=== PATIENT | male | born 1945 | race Caucasian/White ===

== ENCOUNTER 2018-06-14 09:35 | Observation (INO) | payer OTHER ==
[2018-06-14] VITALS (17 sets, daily range): BP systolic 102–155; BP diastolic 53–73
[~2018-06-14] VITALS: Ht 180.3 cm; Wt 86.2 kg
[2018-06-14] MEDS ORDERED: LOW DOSE ASPIRI81 M1 PO (10:45)
[2018-06-14 10:46] LABS: HEMATOCRIT 43.8 % (42.0-52.0); HEMOGLOBIN 15.1 gm/dL (14.0-18.0); MCH 31.1 pg (26.0-34.0); MCHC 34.4 g/dL (28.0-37.0); MCV 90.4 fL (80.0-100.0); MPV 7.4 fl. (7.2-11.1); RBC 4.85 mil/uL (4.50-6.00); RDW-CV 14.1 % (10.5-14.5); WBC 7.2 thou/uL (4.0-11.0)
[2018-06-14] MEDS ORDERED: LIPITOR80 MG PO (10:46)
[2018-06-14] MEDS ORDERED: DEXILANT60 MG PO (10:46)
[2018-06-14] MEDS ORDERED: PLAVIX 75 MG TA75 M1 PO (10:46)
[2018-06-14] MEDS ORDERED: ARICEPT 5 MG TAB5 MG PO (10:47)
[2018-06-14] MEDS ORDERED: ALLEGRA ALLERG180 MG PO (10:48)
[2018-06-14] MEDS ORDERED: ZETIA10 MG PO (10:48)
[2018-06-14] MEDS ORDERED: NIGHTTIME SLEEP25 M1 PO (10:48)
[2018-06-14] MEDS ORDERED: ZANTAC 150MG T150 MG PO (10:49)
[2018-06-14] MEDS ORDERED: PROZAC20 MG PO (10:49)
[2018-06-14] MEDS ORDERED: NEURONTIN 400400 M1 PO (10:49)
[2018-06-14] MEDS ORDERED: MIDODRINE HCL 55 M1 PO (10:50)
[2018-06-14 10:53] LABS: APTT 26.4 Seconds (25.0-31.3); PROTIME 10.4 Seconds (9.20-11.50)
[2018-06-14 10:57] LABS: ALBUMIN 3.7 g/dL (3.4-5.0); ALKALINE PHOSPHATASE 106 U/L (46-116); ANION GAP 9 mmol/L (7-16); BUN 15 mg/dL (7-18); CALCIUM 9.3 mg/dL (8.5-10.1); CHLORIDE 106 mmol/L (98-107); CHOLESTEROL 127 mg/dL (<200); CO2 25 mmol/L (21-32); CREATININE 1.2 mg/dL (0.6-1.3); GLUCOSE 97 mg/dL (70-99); HDL CHOLESTEROL 42 mg/dL (>40); LDL CHOLESTEROL 66 mg/dL (<100); POTASSIUM 4.1 mmol/L (3.5-5.1); SGOT 34 U/L (15-37); SGPT 31 U/L (30-65); SODIUM 140 mmol/L (136-145); TOTAL BILIRUBIN 0.6 mg/dL (<0.1-1.0); TOTAL PROTEIN 7.9 g/dL (6.4-8.2); TRIGLYCERIDE 96 mg/dL (<150); VLDL 19 mg/dL (<40)
[2018-06-14 10:58] LABS: SERUM ASSESSMENT Clear
--- NOTE | 2018-06-14 11:31 | EKG ---
[place] [address] ELECTROCARDIOGRAM REPORT Name: MERLINE LUJAN Room: [facility]#: [id number] Admission: 06/14/18 Attend Phys: Giancarlo Bryson MD Discharge: Date of : 43 Report #: [id number] THIS REPORT FOR: //name// [facility] Test Date: 2018-06-14 Test Time: 10:31:01 Pat Name: MERLINE LUJAN Department: Room: Gender: M Shuffle Board Operator: : 1945 Requested By: Giancarlo Bryson Order Number: [id number] Reading MD: Giancarlo Bryson Measurements Intervals [place] Rate: 69 P: -13 NE: 156 QRS: 41 QRSD: 98 T: 36 QT: 414 QTc: 444 Interpretive Statements Sinus rhythm Abnormal R-wave progression, early transition Borderline T abnormalities, anterior leads No previous ECG available for comparison Electronically Signed On 06-14-2018 11:31:09 CDT by Giancarlo Bryson [email or web address] <ELECTRONICALLY SIGNED> By: Giancarlo Bryson MD, [facility] 06/14/18 113 103 30 Giancarlo Bryson MD, FAC /EPI
--- NOTE | 2018-06-14 16:30 | NUR ---
REC'D REPORT FROM CUSTOMER ADVISOR RN, PATIENT TO UNIT VIA BLAIR AT 1605. A&OX4, ABLE TO COMMUNICATE NEEDS TO STAFF. ASSESSMENT COMPLETE, VS OBTAINED. O2 SATS 95% ON RA. UP WITH SBA D/T FALL WITHIN LAST 3 MONTHS, AND PROCEDURE MEDICATION RESIDUAL. PATIENT HAS STEADY GAIT. R RADIAL CATH PUNCTURE SITE COVERED WITH WRISTBAND, BRUISING AT SITE WITH NO BLEEDING. NO C/O PAIN, NAUSEA OR SOA. CALL LIGHT WITHIN REACH.
[2018-06-15] VITALS: BP 133/66
[2018-06-15 04:00] VITALS: BP 124/64
--- NOTE | 2018-06-15 05:05 | NUR ---
PT RESTING COMFORTABLE IN BED. NO C/O PAIN. PT REMAINS ON RA. SR/SB ON MONITOR. AM LABS TO BE REVIEWED. PT RIGHT WRIST POST CARDIAC CATH SITE REMAINS SOFT, CDI. CONTINUES WITH MAINTENANCE IVF.
[2018-06-15 05:33] LABS: HEMATOCRIT 39.1 % (42.0-52.0); HEMOGLOBIN 13.3 gm/dL (14.0-18.0); MCV 91.1 fL (80.0-100.0); MPV 7.7 fl. (7.2-11.1); RBC 4.29 mil/uL (4.50-6.00); RDW-CV 13.9 % (10.5-14.5); WBC 7.3 thou/uL (4.0-11.0)
[2018-06-15 05:56] LABS: POTASSIUM 4.3 mmol/L (3.5-5.1); TOTAL BILIRUBIN 0.4 mg/dL (<0.1-1.0); TOTAL PROTEIN 6.5 g/dL (6.4-8.2)
[2018-06-15 05:58] LABS: TROPONIN-I LEVEL 0.64 ng/mL (<0.06)
[2018-06-15 08:28] VITALS: BP 131/70
[2018-06-15 11:11] VITALS: BP 110/61
[2018-06-15] MEDS ORDERED: BRILINTA90 MG PO (12:14)
[2018-06-15] MEDS ORDERED: NITROGLYCERIN0.4 MG SUBLING (12:15)
--- NOTE | 2018-06-15 13:03 | NUR ---
PT VSS THIS SHIFT, SR/SB ON THE MONITOR, CATH SITE CDI AT THIS TIME. IV REMOVED INTACT WITH NO COMPLICATIONS. PT EDUCATED REGARDING MEDICATIONS AND DISCHARGE INSTRUCTIONS WELL FOLLOW UP APPOINTMENTS. PT PROVIDED WITH 2 PRESCRIPIONS AT TIME OF D/C. PT AND SPOUSE VERBALIZED UNDERSTANDING AT THIS TIME. PT AMBULATED WITH STAFF OUT OF HOSPITAL WITH STEADY GAIT AT 1240. .
[2018-06-15 13:26] VITALS: BP 110/61
--- NOTE | 2018-06-15 14:31 | EKG ---
[place] [address] ELECTROCARDIOGRAM REPORT Name: MERLINE LUJAN Room: [address] M.R.#: [id number] Admission: 06/14/18 Attend Phys: Giancarlo Bryson MD Discharge: 06/15/18 Date of : 43 Report #: [id number] THIS REPORT FOR: //name// [facility] Test Date: 2018-06-14 Test Time: 13:28:34 Pat Name: MERLINE LUJAN Department: Room: [facility] Gender: M Head Strength And Conditioning Coach: : 1945 Requested By: Gabo Arce Order Number: [id number] Christiano MD: Gabo Arce Measurements Intervals [place] Rate: 65 P: -8 [place]: 168 QRS: 30 QRSD: 88 T: 41 QT: 436 QTc: 454 Interpretive Statements Sinus rhythm Abnormal R-wave progression, early transition Compared to ECG 06/14/2018 10:31:01 T-wave abnormality no longer present Electronically Signed On 06-15-2018 14:31:44 CDT by Gabo Arce [email or web address] <ELECTRONICALLY SIGNED> By: Gabo Arce MD, [facility] 06/15/18 1431 1328 1328 Gabo Arce MD, [facility] /EPI
--- NOTE | 2018-06-15 15:19 | CARD ---
[address] [address] CARDIAC CATH REPORT Name: MERLINE LUJAN Room: [address] Rommel Russo#: [id number] Admission: 06/14/18 Attend Phys: Giancarlo Bryson MD Discharge: 06/15/18 Date of : 43 Report #: [id number] THIS REPORT FOR: //name// APPROVED REPORT Study performed: 06/14/2018 10:43:13 Patient Details Patient Status: Out-Patient Room #: The patient is a 72 year-old male Event Personnel Giancarlo Bryson Business Transformation Consultant, Gabo Arce Solution Mixer, Kristian Andrews FREIGHT DELIVERY DRIVER Monitor, Pedro Luis Chawla FREIGHT DELIVERY DRIVER Scrub, Lucila Akers RN [place] Nurse, Liv Nguyen [place] Nurse Procedures Performed Left Heart Cath FFR JANETTE Place w/wo Plasty Single RCA; Indication Positive stress test Risk Factors Hypercholesterolemia, Hypertension Admission/Lab Medications/Medications given during procedure Aspirin, Platelet Aff. Inhib., Angiomax bolus and infusion Procedure Narrative The patient was brought electively to the Cardiac Catheterization Laboratory and was prepped and draped in a sterile manner. The right wrist was infiltrated with 2% Lidocaine subcutaneous anesthesia. A Slender Glidesheath sheath was inserted into the . Coronary angiography was performed using coronary diagnostic catheters. The right coronary system was accessed and visualized with a 3DRC 6fr catheter. The left coronary system was accessed and visualized with a [place] 4.0 6fr catheter. The left ventricle was accessed and visualized with a PC: Angled Pig 5fr catheter. Left ventricular/Aortic Valve gradient assessed via catheter pullback. Left ventriculogram was performed in LICEA projection. The patient tolerated the procedure well and there were no complications associated with the procedure. [place] [address] CARDIAC CATH REPORT Name: MERLINE LUJAN Room: [address] M.R.#: [id number] Admission: 06/14/18 Attend Phys: Giancarlo Bryson MD Discharge: 06/15/18 Date of : 43 Report #: [id number] Intraoperative Conscious Sedation Sedation start time: 11:31 Case end Time: 13:00 Fentanyl 75 mcg Fluoro Time: 34 minutes Dose: DAP 094262 cGycm2 76.3 mGy Contrast Type and Amount: Visipaque 300 ml Diagnostic Cath Left Main 0% narrowing LAD 40% proximal and mid LAD narrowings Circumflex 60% ostial calcified narrowing with a tubular 40% proximal narrowing Right Coronary Dominant vessel with tandem 80 and 70% mid vessel stenosis Left Ventriculography The left ventricle is normal in size with normal contractility. The left ventricular ejection fraction is estimated to be 65%. Left ventricular wall motion abnormalities are not present. There is mild mitral insufficiency. IVUS Anticoagulation was achieved with Angiomax. Fractional Flow [place] was performed on the proximal left anterior descending artery segment vessel. A XBLAD 3.5 Guide Catheter was used to engage the Left Main ostium. A FFR Interventional Guidewire was used. IVUS Findings FFR of Lesion Proximal Circumflex revealed : 0.89 Hemodynamics The aortic pressure is 97/55 mmHg with a mean of 71 mmHg. The left ventricular pressure is 110/-1 mmHg with a mean of mmHg. The left ventricular end diastolic pressure is 17 mmHg. There was no gradient across the aortic valve upon pullback. PCI Technique Lesion Anticoagulation was achieved with Angiomax. Patient was preloaded with Angiomax IV 13 mg per kg. Percutaneous coronary intervention was performed on the mid right coronary artery. The lesion stenosis prior to intervention was 80% with NESSA 3 flow. A 6FR XBRCA Guide Catheter was used to engage the ostium. A IG: BMW 190cm Interventional Guidewire was [place] [address] CARDIAC CATH REPORT Name: MERLINE LUJAN Room: [address]#: [id number] Admission: 06/14/18 Attend Phys: Giancarlo Bryson MD Discharge: 06/15/18 Date of : 43 Report #: [id number] BALLOON DILATION A Balloon catheter Trek RX 2.5 X 12 was inserted and inflated up to 16.00atm for 15seconds. Additional Inflation: 14.00atm for 7seconds. Additional Inflation: 16.00atm for 15seconds. STENT DEPLOYMENT A drug-eluting stent Xience Ethel 2.60A56bm was inserted and inflated up to 14.00atm for 12seconds. Additional Inflation: 18.00atm for 13seconds. Additional Inflation: 20.00atm for 12seconds. POST STENT DEPLOYMENT BALLOON DILATION A Balloon catheter NC Trek RX 3.0 X 15 was inserted and inflated up to 16.00atm for 6seconds. Additional Inflation: 16.00atm for 5seconds. Additional Inflation: 16.00atm for 7seconds. Final angiography reveals 0 % stenosis with NESSA 3 flow. PCI Technique Lesion The lesion stenosis prior to intervention was proximal left anterior descending artery segment% with NESSA XBLAD 3.5 flow. A Left Main Guide Catheter was used to engage the FFR ostium. BALLOON DILATION A Balloon catheter FFR of Lesion Proximal Circumflex revealed : 0.89 was inserted and inflated up to salvador for seconds. Conclusion #1 significant coronary artery disease characterized by the following: A 40% proximal and mid LAD narrowing B 60% ostial circumflex narrowing with tubular 40% proximal narrowing C dominant right coronary artery with tandem 80 and 70% mid vessel stenosis #2 normal left ventricular systolic function, estimate ejection fraction being 65% with mild mitral regurgitation noted #3 mild elevation of left ventricular end-diastolic pressure at rest #4 successful percutaneous coronary intervention with deployment of drug-eluting stent at site of tandem 80 and 70% [place] [address] CARDIAC CATH REPORT Name: MERLINE LUJAN Room: [address] Rommel Russo#: [id number] Admission: 06/14/18 Attend Phys: Giancarlo Bryson MD Discharge: 06/15/18 Date of : 43 Report #: [id number] stenosis with 0% residual narrowing and NESSA-3 flow the distal vessel #5 fractional flow reserve performed on the proximal circumflex with a minimum value 0.89 after adenosine provocation, suggesting lack of hemodynamic significance Recommendations Cardiac Risk Reduction Program Aggressive Medical Therapy Medications Administered Aspirin (any) Ticagrelor Diagnostic Cath Approved by: Giancarlo Bryson MD Date/Time: 06/15/2018 15:17:05 <ELECTRONICALLY SIGNED> By: Gabo Arce MD, FACC 06/15/18 1518 1518 1518Gabo Arce MD, FACC /INF
--- NOTE | 2018-06-17 11:32 | D ---
[address] [address] DISCHARGE SUMMARY Name: MERLINE LUJAN Room: [address] Rommel MItzelRItzel#: [id number] Admission: 06/14/18 Attend Phys: Giancralo Bryson MD Discharge: 06/15/18 Date of : 43 Report #: [id number] THIS REPORT FOR: //name// CC: Cece Bryson DATE OF SERVICE: 06/15/2018 FINAL DISCHARGE DIAGNOSES: 1. Abnormal stress echocardiogram. 2. Coronary artery disease. 3. Status post percutaneous coronary intervention of the right coronary artery. 4. Dyspnea on exertion. 5. Hyperlipidemia. 6. Gastroesophageal reflux disease. 7. History of transient ischemic attack. 8. History of tobacco abuse. PROCEDURES: 06/14/2018 -- left heart catheterization, left ventriculography, selective coronary arteriography and percutaneous coronary intervention of the right coronary artery. The patient is a very pleasant 72-year-old male with a history of dyspnea on exertion and recently abnormal stress echocardiogram. He also has underlying hyperlipidemia. In this context, Dr. Bryson performed cardiac catheterization on 06/14/2018, which revealed tubular and sequential 75% mid right coronary stenoses with a 60-70% ostial circumflex narrowing. There was modest LAD disease. Given these findings, I performed percutaneous coronary intervention, deploying 1 drug-eluting stent in mid right coronary artery, post-dilating it to 3 mm with 0% residual narrowing. Fractional flow reserve on the ostial proximal circumflex lesion with a minimal value of 0.89 after adenosine provocation, suggesting lack of hemodynamic significance. Thus, no intervention was performed on the circumflex. The patient did well, and the procedure was performed radially with good hemostasis at the right radial site post-procedurally. The patient ambulated in the hallways without difficulty. DISCHARGE MEDICATIONS: He was discharged to home on the following medications: Aspirin 81 mg daily, atorvastatin 80 mg at bedtime, Dexilant 60 mg daily, Aricept 10 mg daily, doxylamine 25 mg at bedtime, Zetia 10 mg daily, fexofenadine or Tonya 1 tablet daily, fluoxetine or Prozac 20 mg daily, gabapentin 800 mg t.i.d., midodrine 2.5 mg b.i.d., ticagrelor 90 mg b.i.d. with 180 mg loading dose given periprocedurally, ranitidine 150 mg p.r.n., [place] [address] DISCHARGE SUMMARY Name: MERLINE LUJAN Room: [address] MItzelRItzel#: [id number] Admission: 06/14/18 Attend Phys: Giancarlo Bryson MD Discharge: 06/15/18 Date of : 43 Report #: [id number] sublingual nitroglycerin. The patient is scheduled to return to see our nurse practitioner in 10 days to 2 weeks. <ELECTRONICALLY SIGNED> By: Gabo Arce MD, FACC 06/17/18 1132 0933 1712Joyaima Arce MD, FACC /nt
== END 2018-06-15 14:29 | disposition home or self-care (01) ==
LOC: M.CL 09:35 → M.2W 13:19 → M.TBA-CV 13:19 → M.2W 16:18
PROVIDERS: Internal Medicine; ADMIT Internal Medicine Cardiovascular Disease
DX: I25.10 Atherosclerotic heart disease of native coronary artery without angina pectoris (principal); E78.5 Hyperlipidemia, unspecified; K21.9 Gastro-esophageal reflux disease without esophagitis; R06.09 Other forms of dyspnea; R94.39 Abnormal result of other cardiovascular function study; E78.00 Pure hypercholesterolemia, unspecified; I10 Essential (primary) hypertension; Z86.73 Personal history of transient ischemic attack (TIA), and cerebral infarction without residual deficits; Z87.891 Personal history of nicotine dependence; Z98.61 Coronary angioplasty status

== ENCOUNTER → 2019-04-06 | Outpatient (CLI) | payer OTHER ==
[~2019-04-06] MED LIST: ALLEGRA ALLERG180 MG PO; ARICEPT 5 MG TAB5 MG PO; BRILINTA90 MG PO; DEXILANT60 MG PO; LIPITOR80 MG PO; LOW DOSE ASPIRI81 M1 PO; MIDODRINE HCL 55 M1 PO; NEURONTIN 400400 M1 PO; NIGHTTIME SLEEP25 M1 PO; NITROGLYCERIN0.4 MG SUBLING; PLAVIX 75 MG TA75 M1 PO; PROZAC20 MG PO; ZANTAC 150MG T150 MG PO; ZETIA10 MG PO
--- NOTE | 2019-04-06 16:50 | CARDNUC ---
[place] [address] CARDIAC NUCLEAR IMAGING REPORT Name: MERLINE LUJAN Room: [facility]#: [id number] Admission: 04/06/19 Attend Phys: Ollie Navarro Discharge: Date of : 43 Date of Service: 04/06/19 1649 Report #: [id number] THIS REPORT FOR: cc: Cece Patricia Linda J. DO Biggs, F. Douglas MD [facility] ~ APPROVED REPORT Study performed: 04/06/2019 13:00:00 Indication: Chest pain, Dyspnea Patient Location: Out-Patient Stress Tech: [facility] Stress Nurse: Isis Agarwal RN Ht: 5 ft 11 in Wt: 185 lbs BSA: 2.04 m2 BMI: 25.79 Medical History Medical History: Angina, CAD s/p CABG, CAD s/p stent, Former Smoker, Hyperlipidemia, SOB. Medications: NTG, Zetia, Plavix, Atorvastatin, ASA 81 Mg. Allergies: No known drug allergies. Cardiac Risk Factors: Age, Age, Hyperlipidemia, SOB, Past Smoker, s/p TX/PCI. Previous Cardiac Procedures: Myocardial infarction, PCI. Pretest Chest Pain Characteristics: No chest pain. Exercise History: Indeterminate. Physical Disabilities: Knees/Back. Meds Held (24 hrs): NTG. Resting Data Rest SPECT myocardial perfusion imaging was performed in supine position 30 minutes following the intravenous injection of 10.5 mCi of Tc-99m Sestamibi. Time of rest injection: 13:15 The images were gated to evaluate regional wall motion and calculate left ventricular ejection fraction. Administration Route: IV Administration Site: Left AC Exercise Stress At peak stress, the patient was injected intravenously with 33.2mCi of Tc-99[place] [address] CARDIAC NUCLEAR IMAGING REPORT Name: MERLINE LUJAN [id number] Admission: 04/06/19 Attend Phys: Ollie Navarro Discharge: Date of : 43 Date of Service: 04/06/19 1649 Report #: [id number] Time of stress injection: 15:00 Administration Route: IV Administration Site: Left AC Heart Rate at time of stress injection: 124 bpm. Patient continued to exercise for 1 minute(s). Gated Stress SPECT was performed 30 minutes after stress injection. The images were gated to evaluate regional wall motion and calculate left ventricular ejection fraction. Prone imaging was performed. Stress Test Details Stress Test: Exercise stress testing was performed using a Adarsh protocol. HR Max Heart Rate (APMHR): 146 bpm Resting HR: 66 bpm Target HR (85% APMHR): 124 bpm Max HR Achieved: 130 bpm % of APMHR: 89 Recovery HR: 92 bpm HR response to stress: Normal HR response to stress BP Resting BP: 115/73 mmHg Max BP: 202/73 mmHg Recovery BP: 120/76 mmHg BP response to stress: Normal blood pressure response to stress. ECG Resting ECG: Sinus Rhythm, normal EKG Stress ECG: Sinus Tachycardia, otherwise normal ST Change: None Maximum ST Deviation: 0 mm Arrhythmia: None Recovery ECG: Sinus Rhythm, normal EKG Recovery ST Change: None Recovery ST Deviation: 0 mm Recovery Arrhythmia: None Clinical Reason for Termination: Completed protocol Stress Symptoms: Dyspnea, Dizziness Exercise duration: 7 min 22 sec Exercise capacity: 7.82 METs Overall Exercise Capacity for Age: [place] [address] CARDIAC NUCLEAR IMAGING REPORT Name: MERLINE LUJAN Room: [facility]#: [id number] Admission: 04/06/19 Attend Phys: Ollie Navarro Discharge: Date of : 43 Date of Service: 04/06/19 1649 Report #: [id number] Nurse Comments A 73 year old male presented for a Adarsh Protocol Nuclear Stress Test r/t recent CP and increased SOA on exertion. Treadmill well tolerated. Exercise Capacity - Normal. Recovery unremarkable. Patient was escorted by staff to Nuclear Medicine for imaging. Patient was stable and stated he felt good at that time. Stress ECG Conclusion ECG: Non-ischemic Clinical: Non-ischemic Normal submaximal stress test. Study Quality Study: Good Artifact: Mild Soft tissue attenuation artifact Lung Uptake: Normal Study Data At rest, the left ventricular ejection fraction was 81%.. Post stress, the left ventricular ejection was 81%.. SSS: 8 SRS: 11 SDS: -3 TID = 0.79. Perfusion The resting study demonstrated a small mild lateral defect. The post stress images demonstrated a small very mild lateral defect and a small very mild inferior defect. Prone images were normal there were no defects seen. Therefore no reversible defects seen and there is no evidence of myocardial .ischemia Images were reviewed using [employer]. Wall Motion Normal left ventricular wall motion. Nuclear Conclusion ECG Findings: negative for ischemia Clinical Findings: negative for ischemia Nuclear Findings: negative for ischemia Exercise Capacity: normal Left Ventricular Function: normal Risk Study: low The Lexiscan Cardiolite stress test demonstrates no evidence of myocardial ischemia. Overall this is a normal study. This [place] [address] CARDIAC NUCLEAR IMAGING REPORT Name: MERLINE LUJAN Room: [facility]#: [id number] Admission: 04/06/19 Attend Phys: Ollie Navarro Discharge: Date of : 43 Date of Service: 04/06/19 1649 Report #: [id number] <Conclusion> ECG: Non-ischemic Clinical: Non-ischemic Normal submaximal stress test. <ELECTRONICALLY SIGNED> By: Reta Alvarado MD, FAC 04/06/191648 48 48 Reta Alvarado MD, FAC /INF
== END ==
LOC: M.NUC 11-29 17:05
DX: I25.10 Atherosclerotic heart disease of native coronary artery without angina pectoris (principal); Z95.5 Presence of coronary angioplasty implant and graft

== ENCOUNTER 2019-11-29 07:36 | Observation (INO) | payer OTHER ==
[2019-11-29] VITALS (11 sets, daily range): BP systolic 101–129; BP diastolic 45–78
[~2019-11-29] VITALS: Ht 180.3 cm; Wt 84.4 kg
--- NOTE | ~2019-11-29 | H ---
[address] [address] HISTORY AND PHYSICAL Name: MERLINE LUJAN Room: [address] Rom[place] Russo#: [id number] Admission: 11/29/19 Attend Phys: Gabo Arce MD, Discharge: 11/30/19 Date of : 43 Report #: [id number] THIS REPORT FOR: //name// cc: Cece Patricia Linda J. DO ~ Please refer to the History and Physical performed in the physician's office. By: [facility]8Medical Records Staff [facility] /BIBI
[2019-11-29 08:52] LABS: HEMOGLOBIN 15.9 gm/dL (14.0-18.0); MCH 31.5 pg (26.0-34.0); MCHC 34.5 g/dL (28.0-37.0); MCV 91.3 fL (80.0-100.0); MPV 7.2 fl. (7.2-11.1); RBC 5.04 mil/uL (4.50-6.00); RDW-CV 14.5 % (10.5-14.5); WBC 11.9 thou/uL (4.0-11.0)
[2019-11-29] MEDS ORDERED: ARICEPT10 M1 PO (09:02)
[2019-11-29] MEDS ORDERED: NEURONTIN800 MG PO (09:05)
[2019-11-29 09:07] LABS: ANION GAP 8 mmol/L (7-16); BUN 14 mg/dL (7-18); CALCIUM 9.1 mg/dL (8.5-10.1); CHLORIDE 103 mmol/L (98-107); CO2 27 mmol/L (21-32); CREATININE 1.3 mg/dL (0.6-1.3); GLUCOSE 113 mg/dL (70-99); SODIUM 138 mmol/L (136-145)
[2019-11-29] MEDS ORDERED: PLAVIX 75 MG TA75 MG PO (09:07)
[2019-11-29] MEDS ORDERED: ZETIA10 MG PO (09:09)
[2019-11-29] MEDS ORDERED: MUCINEX DM ER1 EAC1 PO (09:09)
[2019-11-29 09:11] LABS: ALBUMIN 3.9 g/dL (3.4-5.0); ALKALINE PHOSPHATASE 107 U/L (46-116); CHOLESTEROL 117 mg/dL (<200); HDL CHOLESTEROL 43 mg/dL (>40); LDL CHOLESTEROL 57 mg/dL (<100); SGOT 31 U/L (15-37); SGPT 29 U/L (30-65); TC:HDL 2.7 Ratio (Not establshd); TOTAL BILIRUBIN 0.7 mg/dL (<0.1-1.0); TOTAL PROTEIN 8.2 g/dL (6.4-8.2); TRIGLYCERIDE 86 mg/dL (<150); VLDL 17 mg/dL (<40)
[2019-11-29 09:12] LABS: SERUM ASSESSMENT Clear
[2019-11-29] MEDS ORDERED: TRELEGY ELLIPT1 EACH INH (09:13)
[2019-11-29] MEDS ORDERED: FLOMAX0.4 MG PO (09:14)
[2019-11-29] MEDS ORDERED: VITAMIN D31250 MC1 PO (09:15)
[2019-11-29] MEDS ORDERED: VITAMIN B-121000 MC2 PO (09:15)
[2019-11-29 09:18] LABS: APTT 24.7 Seconds (25.0-31.3); PROTIME 10.5 Seconds (9.20-11.50)
--- NOTE | 2019-11-29 17:12 | EKG ---
[place] [address] ELECTROCARDIOGRAM REPORT Name: TAIMERLINE Room: [address] M.R.#: [id number] Admission: 11/29/19 Attend Phys: Ollie Navarro Discharge: Date of : 43 Date of Service: 11/29/19 0948 Report #: [id number] THIS REPORT FOR: //name// [facility] Test Date: 2019-11-29 Test Time: 09:48:40 Pat Name: MERLINE LUJAN Department: Room: [facility] Gender: M Strategic Manager: JAMESON : 1945 Requested By: Gabo Arce Order Number: [id number] Christiano MD: Gabo Arce Measurements Intervals [place] Rate: 62 P: 7 ND: 170 QRS: 49 QRSD: 94 T: 33 QT: 428 QTc: 435 Interpretive Statements Sinus rhythm Ventricular premature complex Abnormal R-wave progression, early transition Compared to ECG 06/14/2018 13:28:34 Ventricular premature complex(es) now present Electronically Signed On 11-29-2019 17:12:04 CDT by Gabo Arce [email or web address] <ELECTRONICALLY SIGNED> By: Gabo Arce MD, [facility] 11/29/19 1712 0948 0948 Gabo Arce MD, [facility] /EPI
--- NOTE | 2019-11-29 17:14 | EKG ---
[place] [address] ELECTROCARDIOGRAM REPORT Name: TAIMERLINE Room: [address] M.R.#: [id number] Admission: 11/29/19 Attend Phys: Ollie Navarro Discharge: Date of : 43 Date of Service: 11/29/19 1251 Report #: [id number] THIS REPORT FOR: //name// [facility] Test Date: 2019-11-29 Test Time: 12:51:49 Pat Name: MERLINE LUJAN Department: Room: [facility] Gender: M Precision Filer Hand: JAMESON : 1945 Requested By: Gabo Arce Order Number: [id number] Reading MD: Gabo Arce Measurements Intervals [place] Rate: 63 P: 51 [place]: 175 QRS: 53 QRSD: 95 T: 49 QT: 457 QTc: 468 Interpretive Statements Sinus rhythm Ventricular premature complex Abnormal R-wave progression, early transition Compared to ECG 11/29/2019 09:48:40 No significant changes Electronically Signed On 11-29-2019 17:14:30 CDT by Gabo Arce [email or web address] <ELECTRONICALLY SIGNED> By: Gabo Arce MD, [facility] 11/29/19 1714 1251 1251 Gabo Arce MD, [facility] /EPI
[2019-11-30 00:46] VITALS: BP 105/66
[2019-11-30 04:33] VITALS: BP 110/66
[2019-11-30 04:52] LABS: HEMATOCRIT 44.9 % (42.0-52.0); HEMOGLOBIN 15.6 gm/dL (14.0-18.0); MCH 31.8 pg (26.0-34.0); MCHC 34.6 g/dL (28.0-37.0); MCV 91.9 fL (80.0-100.0); MPV 7.7 fl. (7.2-11.1); RBC 4.89 mil/uL (4.50-6.00); RDW-CV 14.5 % (10.5-14.5); WBC 10.2 thou/uL (4.0-11.0)
[2019-11-30 05:26] LABS: ALBUMIN 3.7 g/dL (3.4-5.0); CALCIUM 9.1 mg/dL (8.5-10.1); CREATININE 1.1 mg/dL (0.6-1.3); POTASSIUM 4.2 mmol/L (3.5-5.1); TOTAL BILIRUBIN 0.6 mg/dL (<0.1-1.0); TOTAL PROTEIN 7.8 g/dL (6.4-8.2); TROPONIN-I LEVEL 0.29 ng/mL (<0.06)
[2019-11-30 08:19] VITALS: BP 117/54
[2019-11-30 10:02] VITALS: BP 129/70
[2019-11-30 11:06] VITALS: BP 129/70
[2019-11-30 11:38] VITALS: BP 129/70
--- NOTE | 2019-11-30 13:52 | CARD ---
[address] [address] CARDIAC CATH REPORT Name: MERLINE LUJAN Room: [address] [place] M.Margaret#: [id number] Admission: 11/29/19 Attend Phys: Gabo Arce MD, Discharge: 11/30/19 Date of : 43 Report #: [id number] THIS REPORT FOR: //name// cc: Cece Patricia Linda J. DO ~ APPROVED REPORT Study performed: 11/29/2019 09:26:53 Patient Details Patient Status: Out-Patient Room #: The patient is a 73 year-old male Event Personnel Gabo Arce Embedded Systems Developer, Marquis Gomez RN RN, Valeria Billingsley RTR ScrubAguilar Tina RN Monitor Procedures Performed Art Access - R femoral artery* Left Heart Cath w/or w/o Coronaries C JANETTE Place w/wo Plasty Single CIRC Atherectomy w/wo Plasty Sgl LAD Hemostasis w/ Angioseal Indication Unstable angina Previous Procedures/Diagnoses Previous PCI Admission/Lab Medications/Medications given during procedure Angiomax bolus and infusion Procedure Narrative The patient was brought electively to the Cardiac Catheterization Laboratory and was prepped and draped in a sterile manner. The right femoral was infiltrated with 2% Lidocaine subcutaneous anesthesia. A [place] 6 FR sheath was inserted into the right femoral artery. Coronary angiography was performed using coronary diagnostic catheters. The right coronary system was accessed and visualized with a 3DRC 6fr catheter. The left coronary system was accessed and visualized with a JL4 6fr catheter. The left ventricle was accessed and visualized with a 6 Fr Straight Pigtail catheter. Closure device was deployed with a 6 Fr Angioseal STS. The patient tolerated the procedure well and there were no complications associated with the procedure. [place] [address] CARDIAC CATH REPORT Name: EVANSMERLINE Phillips Room: [address] M.R.#: [id number] Admission: 11/29/19 Attend Phys: Gabo Arce MD, Discharge: 11/30/19 Date of : 43 Report #: [id number] Intraoperative Conscious Sedation Sedation start time: 10:32 Case end Time: 11:51 Fentanyl 25 mcg Versed 1 mg Fluoro Time: 22.5 minutes Dose: DAP 910044 cGycm2 3354 mGy Contrast Type and Amount: Visipaque 330 ml Diagnostic Cath Left Main 0% narrowing LAD 75% calcified eccentric proximal LAD stenosis Circumflex 90% calcified ostial proximal stenosis Right Coronary 0% narrowing Ramus 40% proximal narrowing Left Ventriculography The left ventricle is normal in size with normal contractility. The left ventricular ejection fraction is estimated to be 60%. Left ventricular wall motion abnormalities are not present. There is no mitral insufficiency. Hemodynamics The aortic pressure is 99/47 mmHg with a mean of 69 mmHg. The left ventricular pressure is 106/-2 mmHg with a mean of mmHg. The left ventricular end diastolic pressure is 18 mmHg. PCI Technique Lesion Anticoagulation was achieved with Angiomax. Percutaneous coronary intervention was performed on the proximal circumflex artery segment. The lesion stenosis prior to intervention was 90% with NESSA 3 flow. A 6F XB LAD 3.5 Guide Catheter was used to engage the ostium. A IG: BMW 190cm Interventional Guidewire was used to cross the lesion. BALLOON DILATION A Balloon catheter NC Euphora 2.5x8 was inserted and inflated up to 14.00atm for 16seconds. Additional Inflation: 16.00atm for 10seconds. STENT DEPLOYMENT A drug-eluting stent [place] RX Stent 2.5X8mm was inserted and inflated up to 12.00atm for 8seconds. Additional Inflation: 12.00atm for 13seconds. Final angiography reveals 0 % stenosis with NESSA 3 [place] [address] CARDIAC CATH REPORT Name: MERLINE LUJAN Room: [address] [place] Russo#: [id number] Admission: 11/29/19 Attend Phys: Gabo Arce MD, Discharge: 11/30/19 Date of : 43 Report #: [id number] PCI Technique Lesion 2 Percutaneous Coronary Intervention was performed on the proximal left anterior descending artery segment. Percutaneous coronary intervention was performed on the Proximal LAD. The lesion stenosis prior to intervention was 75% with NESSA 3 flow. A 6F XB LAD 3.5 Guide Catheter was used to engage the ostium. A IG: BMW 190cm Interventional Guidewire was used to cross the lesion. Balloon Dilation A Balloon catheter NC Euphora 2.5x8 was inserted and inflated up to 14.00atm for 17seconds. Additional Inflation: 10.00atm for 11seconds. 2.5 x 10 mm angiosculpt balloon was inflated to 14 salvador and 16 salvador in the proximal LAD to score the vessel prior to stent deployment Stent Deployment A drug-eluting stent [place] RX Stent 2.5X15mm was inserted and inflated up to 10.00atm for 11seconds. Additional Inflation: 10.00atm for 6seconds. Final angiography reveals 0 % stenosis with NESSA 3 flow. BALLOON DILATION A Balloon catheter AngioSculpt PTCA 2.5 X 10mm was inserted and inflated up to 14.00atm for 16seconds. Additional Inflation: 16.00atm for 10seconds. Conclusion 1. Significant coronary artery disease characterized by the following: A 75% calcified eccentric proximal LAD stenosis B 40% proximal ramus intermedius narrowing C 90% ostial proximal calcified circumflex stenosis D normal dominant right coronary artery 2. Normal left ventricular systolic function, estimated ejection fraction 60% 3. Modest elevation of left ventricular end-diastolic pressure at rest 4. Successful atherotomy/atherectomy with stenting of the proximal LAD with 0% residual narrowing and NESSA-3 [place] [address] CARDIAC CATH REPORT Name: EVANSAlanMERLINE JENNY Room: [address] [place] Russo#: [id number] Admission: 11/29/19 Attend Phys: Gabo Arce MD, Discharge: 11/30/19 Date of : 43 Report #: [id number] vessel 5. Successful PCI with deployment of drug-eluting stent at site of 90% ostial proximal circumflex stenosis with 0% residual narrowing and NESSA-3 flow to the distal vessel Recommendations Daily ASA with Plavix for at least one year Aggressive Medical Therapy Medications Administered Aspirin (any) Clopidogrel Diagnostic Cath Approved by: Gabo Arce MD Date/Time: 11/30/2019 13:42:39 <ELECTRONICALLY SIGNED> By: Gabo Arce MD, FACC 11/30/19 1351 1351 1351Gabo Arce MD, FACC /INF
--- NOTE | 2019-11-30 16:17 | EKG ---
[place] [address] ELECTROCARDIOGRAM REPORT Name: TAIMERLINE Room: [address] M.R.#: [id number] Admission: 11/29/19 Attend Phys: Ollie Navarro Discharge: 11/30/19 Date of : 43 Date of Service: 11/30/19 0825 Report #: [id number] THIS REPORT FOR: //name// [facility] Test Date: 2019-11-30 Test Time: 08:25:56 Pat Name: MERLINE LUJAN Department: Room: [facility] Gender: M Chute Tapper: : 1945 Requested By: Gabo Arce Order Number: [id number] Reading MD: Gabo Arce Measurements Intervals [place] Rate: 60 P: -12 SD: 170 QRS: 34 QRSD: 89 T: 31 QT: 434 QTc: 434 Interpretive Statements Sinus rhythm Abnormal R-wave progression, early transition Compared to ECG 11/29/2019 12:51:49 Ventricular premature complex(es) no longer present Electronically Signed On 11-30-2019 16:16:51 CDT by Gabo Arce [email or web address] <ELECTRONICALLY SIGNED> By: Gabo Arce MD, [facility] 11/30/19 1616 4 4 Gabo Arce MD, [facility] /EPI
--- NOTE | 2019-11-30 16:29 | D ---
[address] [address] DISCHARGE SUMMARY Name: MERLINE LUJAN Room: [address] [place] Russo#: [id number] Admission: 11/29/19 Attend Phys: Gabo Arce MD, Discharge: 11/30/19 Date of : 43 Report #: [id number] THIS REPORT FOR: //name// cc: Cece Patricia Linda J. DO THIS REPORT FOR: //name// CC: Gabo Patricia DATE OF SERVICE: 11/30/2019 FINAL DISCHARGE DIAGNOSES: 1. Unstable angina. 2. Dyspnea on exertion. 3. Coronary artery disease. 4. Status post percutaneous coronary intervention to the left anterior descending and circumflex. 5. Chronic obstructive pulmonary disease. 6. Orthostatic hypotension. 7. History of transient ischemic attack. 8. Hyperlipidemia. PROCEDURES: 11/29/2019 -- left heart catheterization, left ventriculography, selective coronary arteriography and atherectomy with stenting of the proximal LAD with stenting of the proximal circumflex. HOSPITAL COURSE: The patient is a 73-year-old male with a history of coronary artery disease, status post prior PCI. He has significant dyspnea in the setting of COPD with worsening of leg with accompanying chest discomfort suggesting angina. He has underlying hyperlipidemia and significant COPD. He underwent cardiac catheterization on 11/29/2019 which revealed 75% irregular calcified proximal LAD stenosis with 90% calcified proximal circumflex stenosis. There was 30-40% narrowing of the proximal portion of the ramus intermedius. Left ventricular function was normal. Given this data, I performed percutaneous coronary intervention with an arthrotomy/atherectomy with stenting of the proximal LAD and stenting of the proximal circumflex with drug-eluting stents deployed at both sites. There was 0% residual LAD and circumflex narrowing with NESSA 3 flow of the distal vessel. Troponin jeremi inconsequentially to 0.29. He did well post-procedurally and there was good hemostasis at the right [place] [address] DISCHARGE SUMMARY Name: MERLINE LUJAN Room: [address] [place] Russo#: [id number] Admission: 11/29/19 Attend Phys: Gabo Arce MD, Discharge: 11/30/19 Date of : 43 Report #: [id number] Laboratory on 11/29 revealed sodium 141, potassium 4.2, BUN 13, creatinine 1.1, glucose 94. Hemoglobin 15.6, white blood cell count 10,200 with 246,000 platelets. He ambulated in the hallways without difficulty. DISCHARGE MEDICATIONS: He was discharged to home on the following medications: Plavix or clopidogrel 75 mg daily with a 600 mg deric-procedural dose, aspirin 81 mg daily, Zetia 10 mg daily, Lipitor 40 mg daily and previously utilized Aricept and Neurontin. I will plan to see the patient in followup on 01/01/2020 to [facility] office. Therefore, the patient is discharged to home in stable condition on the aforementioned medications and followup as described above. <ELECTRONICALLY SIGNED> By: Gabo Arce MD, FACC 11/30/19 1629 1239 1341Gabo Arce MD, FACC /nt
== END 2019-11-30 11:25 | disposition home or self-care (01) ==
LOC: M.CL 07:36 → M.2W 12:12 → M.TBA-CV 12:12 → M.2W 12:24
PROVIDERS: ADMIT Internal Medicine; ATTEND Internal Medicine
DX: I25.110 Atherosclerotic heart disease of native coronary artery with unstable angina pectoris (principal); R06.09 Other forms of dyspnea; J44.9 Chronic obstructive pulmonary disease, unspecified; E78.5 Hyperlipidemia, unspecified; I95.1 Orthostatic hypotension; Z79.01 Long term (current) use of anticoagulants; Z79.82 Long term (current) use of aspirin; Z79.899 Other long term (current) drug therapy; Z20.828 Contact with and (suspected) exposure to other viral communicable diseases

== ENCOUNTER 2019-12-29 13:27 | Emergency (ER) | payer OTHER ==
[~2019-12-29] VITALS: Ht 180.3 cm; Wt 84.4 kg
[~2019-12-29 13:27] MED LIST changes: +ARICEPT10 M1 PO; +FLOMAX0.4 MG PO; +MUCINEX DM ER1 EAC1 PO; +NEURONTIN800 MG PO; +PLAVIX 75 MG TA75 MG PO; +TRELEGY ELLIPT1 EACH INH; +VITAMIN B-121000 MC2 PO; +VITAMIN D31250 MC1 PO
[2019-12-29 14:03] LABS: ABSOLUTE BASOPHILS 0.2 thou/uL (0.0-0.2); ABSOLUTE EOSINOPHILS 0.3 thou/uL (0.0-0.7); ABSOLUTE LYMPHOCYTES 2.6 thou/uL (0.8-5.3); ABSOLUTE MONOCYTES 1.9 thou/uL (0.0-1.2); ABSOLUTE NEUTROPHILS 9.8 thou/uL (1.6-8.1); BASOPHILS 1.1 %; EOSINOPHILS 2.3 %; HEMATOCRIT 47.5 % (42.0-52.0); HEMOGLOBIN 16.1 gm/dL (14.0-18.0); LYMPHOCYTES 17.7 %; MCH 31.1 pg (26.0-34.0); MCHC 33.8 g/dL (28.0-37.0); MCV 91.8 fL (80.0-100.0); MONOCYTES 12.7 %; NUCLEATED RBCS 0 /100WBC; PLATELET COUNT* 316 thou/uL (150-400); POLYS 66.2 %; RBC 5.17 mil/uL (4.50-6.00); RDW-CV 14.1 % (10.5-14.5); WBC 14.8 thou/uL (4.0-11.0)
[2019-12-29 14:10] LABS: CALCIUM 9.4 mg/dL (8.5-10.1); CREATININE 1.3 mg/dL (0.6-1.3); POTASSIUM 4.1 mmol/L (3.5-5.1)
[2019-12-29 14:11] LABS: APTT 23.3 Seconds (25.0-31.3); PROTIME 10.4 Seconds (9.20-11.50)
[2019-12-29 14:21] LABS: ALBUMIN 3.7 g/dL (3.4-5.0); TOTAL BILIRUBIN 0.5 mg/dL (<0.1-1.0); TOTAL PROTEIN 8.3 g/dL (6.4-8.2)
[2019-12-29] MEDS ORDERED: PREDNISONE 20 M20 M1 PO (15:30)
[2019-12-29] MEDS ORDERED: AUGMENTIN 875-1 EACH PO (15:30)
[2019-12-29 15:57] VITALS: BP 108/65
--- NOTE | 2019-12-29 17:46 | EKG ---
[place] [address] ELECTROCARDIOGRAM REPORT Name: EVANSAlanMERLINE Room: [facility]#: [id number] Admission: 12/29/19 Attend Phys: Discharge: 12/29/19 Date of : 43 Date of Service: 12/29/19 1350 Report #: [id number] THIS REPORT FOR: //name// [facility] ED Test Date: 2019-12-29 Test Time: 13:50:04 Pat Name: MERLINE LUJAN Department: Room: Gender: Family Nurse: [place] : 1945 Requested By: Stuart Hernandez Order Number: [id number] MD: Chester Ortega Measurements Intervals [place] Rate: 79 P: 45 [place]: 149 QRS: 29 QRSD: 92 T: 34 QT: 385 QTc: 442 Interpretive Statements Sinus rhythm Abnormal R-wave progression, early transition Compared to ECG 11/30/2019 08:25:56 No significant changes Electronically Signed On 12-29-2019 17:46:15 CDT by Chester Ortega [email or web address] <ELECTRONICALLY SIGNED> By: Chester Ortega MD, FACC 12/29/19 1746 1350 1350 Chester Ortega MD, [facility] /EPI
== END 2019-12-29 15:57 | disposition home or self-care (01) ==
LOC: M.ERS 13:27
PROVIDERS: Family Medicine
DX: H70.91 Unspecified mastoiditis, right ear (principal); Z20.828 Contact with and (suspected) exposure to other viral communicable diseases; I25.2 Old myocardial infarction; Z79.899 Other long term (current) drug therapy; Z79.82 Long term (current) use of aspirin

== ENCOUNTER 2020-01-15 18:09 | Inpatient (IN) | payer OTHER ==
[~2020-01-15] VITALS: Ht 180.3 cm; Wt 86.2 kg
[~2020-01-15 18:09] MED LIST changes: +AUGMENTIN 875-1 EACH PO; +PREDNISONE 20 M20 M1 PO
[2020-01-15 18:10] VITALS: BP 92/51
[2020-01-15 18:56] LABS: ABSOLUTE BASOPHILS 0.1 thou/uL (0.0-0.2); ABSOLUTE EOSINOPHILS 0.4 thou/uL (0.0-0.7); ABSOLUTE LYMPHOCYTES 1.8 thou/uL (0.8-5.3); ABSOLUTE NEUTROPHILS 7.6 thou/uL (1.6-8.1); EOSINOPHILS 3.1 %; HEMATOCRIT 44.7 % (42.0-52.0); HEMOGLOBIN 15.1 gm/dL (14.0-18.0); LYMPHOCYTES 15.2 %; MCH 31.3 pg (26.0-34.0); MCHC 33.8 g/dL (28.0-37.0); MCV 92.6 fL (80.0-100.0); MONOCYTES 16.9 %; MPV 7.1 fl. (7.2-11.1); NUCLEATED RBCS 0 /100WBC; PLATELET COUNT* 243 thou/uL (150-400); POLYS 63.8 %; RBC 4.83 mil/uL (4.50-6.00); RDW-CV 13.9 % (10.5-14.5); WBC 11.9 thou/uL (4.0-11.0)
[2020-01-15 19:07] LABS: CALCIUM 9.5 mg/dL (8.5-10.1); CREATININE 1.3 mg/dL (0.6-1.3); POTASSIUM 5.2 mmol/L (3.5-5.1)
[2020-01-15 19:08] LABS: PROTIME 10.6 Seconds (9.20-11.50)
[2020-01-15 19:17] LABS: ALBUMIN 3.2 g/dL (3.4-5.0); TOTAL BILIRUBIN 0.7 mg/dL (<0.1-1.0); TOTAL PROTEIN 7.8 g/dL (6.4-8.2)
[2020-01-15 19:55] LABS: INFLUENZA A ANTIGEN Negative (Negative); INFLUENZA B ANTIGEN Negative (Negative)
[2020-01-15 20:36] LABS: URINE BILIRUBIN NEGATIVE (Negative); URINE BLOOD NEGATIVE (Negative); URINE CLARITY CLEAR; URINE COLOR YELLOW; URINE GLUCOSE-RANDOM NEGATIVE (Negative); URINE KETONES NEGATIVE (Negative); URINE LEUKOCYTES-REFLEX NEGATIVE (Negative); URINE NITRITE-REFLEX NEGATIVE (Negative); URINE PROTEIN NEGATIVE (Negative); URINE UROBILINOGEN 0.2 E.U./dl (0.2-1.0)
[2020-01-15 21:59] LABS: BE -4.8 mmol/L (-2 to +3); PCO2 23.8 mmHg (35.0-45.0); PO2 62.8 mmHg (75.0-100.0); pH 7.468 (7.340-7.450)
[2020-01-16] VITALS (7 sets, daily range): BP systolic 95–123; BP diastolic 46–67
[2020-01-16 03:24] LABS: ABSOLUTE MONOCYTES 0.1 thou/uL (0.0-1.2); ABSOLUTE NEUTROPHILS 4.8 thou/uL (1.6-8.1); BASOPHILS 0.8 %; EOSINOPHILS 0.4 %; HEMATOCRIT 39.4 % (42.0-52.0); HEMOGLOBIN 13.4 gm/dL (14.0-18.0); LYMPHOCYTES 17.3 %; MCH 31.3 pg (26.0-34.0); MCHC 34.1 g/dL (28.0-37.0); MCV 91.8 fL (80.0-100.0); MONOCYTES 2.1 %; NUCLEATED RBCS 0 /100WBC; PLATELET COUNT* 206 thou/uL (150-400); POLYS 79.4 %; RBC 4.29 mil/uL (4.50-6.00); RDW-CV 13.8 % (10.5-14.5)
[2020-01-16 03:57] LABS: CALCIUM 8.3 mg/dL (8.5-10.1); POTASSIUM 4.3 mmol/L (3.5-5.1)
[2020-01-16 04:01] LABS: ALBUMIN 2.7 g/dL (3.4-5.0); TOTAL BILIRUBIN 0.5 mg/dL (<0.1-1.0); TOTAL PROTEIN 6.6 g/dL (6.4-8.2)
--- NOTE | 2020-01-16 10:43 | EKG ---
[place] [address] ELECTROCARDIOGRAM REPORT Name: MERLINE LUJAN Room: [place] [address] ADM IN .R.#: [id number] Admission: 01/15/20 Attend Phys: Tej Evans Discharge: Date of : 43 Date of Service: 01/15/20 185 Report #: [id number] THIS REPORT FOR: //name// [facility] ED Test Date: 2020-01-15 Test Time: 18:51:13 Pat Name: MERLINE LUJAN Department: Room: [facility] Gender: M Chemistry Teacher: CCD : 1945 Requested By: Stuart Hernandez Order Number: [id number] MD: Chester Ortega Measurements Intervals [place] Rate: 87 P: 45 RI: 154 QRS: 22 QRSD: 87 T: 17 QT: 364 QTc: 438 Interpretive Statements Sinus rhythm Ventricular premature complex Nonspecific T wave flattening Abnormal R-wave progression, early transition Compared to ECG 12/29/2019 13:50:04 Ventricular premature complex(es) now present Electronically Signed On 01-16-2020 10:43:36 STRAWHAT BLOCKING OPERATOR by Chester Ortega [email or web address] <ELECTRONICALLY SIGNED> By: Chester Ortega MD, FACC 01/16/20 1043 50 50 Chester Ortega MD, FACC /EPI
--- NOTE | 2020-01-16 15:45 | NUR ---
er admit to 220 telephone report given prior to arrival patient to via bed patient oriented to and call light patient denies pain
[2020-01-17 00:08] VITALS: BP 93/48
[2020-01-17 04:08] LABS: HEMATOCRIT 35.9 % (42.0-52.0); HEMOGLOBIN 12.1 gm/dL (14.0-18.0); MCH 31.1 pg (26.0-34.0); MCHC 33.7 g/dL (28.0-37.0); MCV 92.3 fL (80.0-100.0); MPV 7.5 fl. (7.2-11.1); RBC 3.89 mil/uL (4.50-6.00); WBC 13.3 thou/uL (4.0-11.0)
[2020-01-17 04:27] VITALS: BP 104/60
[2020-01-17 04:29] LABS: CALCIUM 8.4 mg/dL (8.5-10.1); MAGNESIUM 2.1 mg/dL (1.8-2.4); POTASSIUM 4.4 mmol/L (3.5-5.1)
--- NOTE | 2020-01-17 05:56 | NUR ---
ASSUMED PT CARE AT 1915. NURSING ASSESSMENT COMPLETED AT START OF SHIFT. SR ON RESOURCE ROOM TEACHER. CONTINUES ON 2L O2 VIA NC. C/O COUGH THROUGHOUT THE NIGHT.DR. LE NOTIFIFED AND NEW ORDERS RECEIVED. HOURLY ROUNDING COMPLETED. CALL LIGHT WITHIN REACH.
[2020-01-17 08:00] VITALS: BP 114/52
--- NOTE | 2020-01-17 09:03 | NUR ---
CM SPOKE TO THE PT TO DISCUSS CM ASSESSMENT. PT A&O, INDEPENDENT WITH ADL'S, AND ACTIVE PRIOR TO ADMIT. PT RESIDES AT HOME WITH SPOUSE. PT INFORMS THAT 'I HAVEN'T GOTTEN ANY BETTER SINCE THE LAST TIME I WAS HERE'. PT OWNS 0 DME. PT HAS 0 HX OF HH OR SNF AND INFORMS 'I DON'T NEED IT'. PT CURRENTLY ON 2L O2 VIA NC. CM WILL REMAIN AVAILABLE TO ASSIST AND FOLLOW NEEDED.
[2020-01-17 12:00] VITALS: BP 119/49
[2020-01-17 16:00] VITALS: BP 126/58
--- NOTE | 2020-01-17 16:30 | NUR ---
ASSUMED CARE OF PT AT 0730. PT RESTING IN BED THIS AM. UP TO RECLINER FOR MEALS AND THROUGHOUT AFTERNOON. AT BEDSIDE THROUGHOUT SHIFT AND UPDATED ON CURRENT PLAN OF CARE. A&0X4, DENIES ANY PAIN OR SHORTNESS OF BREATH. PT COMPLAINS OF DRY COUGH-TREATED WITH PRN TESSALON PEARLS WITH PARTIAL RELIEF. PT ON SCHEDULED MUCINEX. PT TRACING SR WITH OCCASIONAL PAC'S ON THE TITLE I INSTRUCTIONAL ASSISTANT. ON 2L NC SAT 95%. PT UP AD NICOLÁS IN ROOM. PT SHOWERED THIS AFTERNOON INDEPENDENTLY- TOLERATED WELL. SPUTUM RESULTS BACK-REFER TO RESULTS. PT SCREENED POSITIVE FOR SEPSIS THIS AM-DR LE NOTIFIED. NO NEW ORDERS RECEIVED AT THIS TIME. PT RECEIVING IV ROCEPHIN AND AZITHROMYCIN. MIDODRINE INCREASED TO 5MG- PT HOME DOSAGE. PT GOAL FOR TODAY IS WEAN 02 AND INCREASE ACTIVITY, IV ABX AND IV STEROIDS. AM ASSESSMENT CHARTED. MEDICATIONS PER APR. PT REPOSITIONS SELF. HOURLY ROUNDING OBSERVED. BED IN LOW POSITION. CALL LIGHT WITHIN REACH. WILL CONTINUE PLAN OF CARE.
[2020-01-17 20:30] VITALS: BP 118/71
[2020-01-18] VITALS: BP 109/59
--- NOTE | 2020-01-18 03:00 | NUR ---
ASSUMED CARE OF PATIENT AT 1930. PATIENT CONINTUES ON 2L OF OXYGEN VIA NC. BUBBLER ADDED TO OXYGEN FOR COMFORT. COUGH NOTED HOWEVER PATIENT REPORTS IMPROVEMENT FROM PREVIOUS NOC. ASSESSMENT CHARTED. PATIENT APPEARS TO BE PROGRESSING TOWARD CARE PLAN GOALS.
[2020-01-18 04:21] VITALS: BP 109/64
[2020-01-18 04:27] LABS: HEMATOCRIT 36.2 % (42.0-52.0); HEMOGLOBIN 12.2 gm/dL (14.0-18.0); MCH 31.4 pg (26.0-34.0); MCHC 33.8 g/dL (28.0-37.0); MPV 7.4 fl. (7.2-11.1); RBC 3.89 mil/uL (4.50-6.00); RDW-CV 14.4 % (10.5-14.5); WBC 12.1 thou/uL (4.0-11.0)
[2020-01-18 04:48] LABS: CALCIUM 8.7 mg/dL (8.5-10.1); CREATININE 0.9 mg/dL (0.6-1.3); MAGNESIUM 2.1 mg/dL (1.8-2.4); POTASSIUM 4.3 mmol/L (3.5-5.1)
[2020-01-18 08:00] VITALS: BP 117/62
[2020-01-18 11:47] VITALS: BP 115/53
--- NOTE | 2020-01-18 13:10 | NUR ---
CM INFORMED DURING PRIME ROUNDING OF THE PLAN OF CARE FOR THE PT. PT REMAINS ON I.V. ABT'S AND 2L 02. PT TESTED POSITIVE FOR SEPSIS SCREENING. PT DOES NOT HAVE HOME O2. CM WILL REMAIN AVAILABLE TO ASSIST AND FOLLOW NEEDED.
[2020-01-18 17:00] VITALS: BP 126/72
--- NOTE | 2020-01-18 18:58 | NUR ---
ASSUMED CARE OF PT AT 0730. CRITICAL LACTIC THIS AM AT 4.7. DR CORMIER NOTIFIED. ORDERS RECEIVED. PT SCREENED POSITIVE FOR SEPSIS. DR CORMIER NOTIFIED. ORDERS RECEIVED FOR NS BOLUS AND SODIUM BICARB D5H20 AT 50ML/HR. REFER TO EMAR. MOST RECENT LACTIC 2.4. PT DENIES ANY PAIN. PT COMPLAINS OF SHORTNESS OF BREATH. ON 2L NC SAT 92%. UNABLE TO TITRATE OXYGEN. PT COMPLAINED OF DRY COUGH-TREATED WITH PRN TESSALON PEARLS AND PRN MUCINEX WITH PARTIAL RELIEF. AM ASSESSMENT CHARTED. MEDS PER APR. PT REPOSITIONS SELF WITH REMINDERS. HOURLY ROUNDING OBSERVED. BED IN LOW POSITION. CALL LIGHT WITHIN REACH. WILL CONTINUE PLAN OF CARE.
[2020-01-18 20:00] VITALS: BP 124/67
--- NOTE | 2020-01-18 20:00 | NUR ---
RECEIVED REPORT AND ASSUMED CARE OF PT, ASSESSMENT COMPLETED. HOB ELEVATED, SOA WITH ACTIVITY. O2 ON AT 2L/NC. HAVING OCC MOIST NON-PROD COUGH. AMBULATING TO BR AND BACK WITH O2 ON. TELEMETRY ON SHOWING SR WITH PVC. WILL CONT TO MONITOR AND ASSIST NEEDED.
[2020-01-18 23:16] LABS: URINE BILIRUBIN NEGATIVE (Negative); URINE BLOOD NEGATIVE (Negative); URINE CLARITY CLEAR; URINE COLOR YELLOW; URINE GLUCOSE-RANDOM TRACE (Negative); URINE KETONES NEGATIVE (Negative); URINE LEUKOCYTES NEGATIVE (Negative); URINE NITRITE NEGATIVE (Negative); URINE PROTEIN NEGATIVE (Negative); URINE SPECIFIC GRAVITY 1.015 (1.005-1.030); URINE UROBILINOGEN 0.2 E.U./dl (0.2-1.0)
[2020-01-19] VITALS: BP 126/69
[2020-01-19 02:06] LABS: GLYCOHEMOGLOBIN (HGB A1C) 6.4 % (4.8-5.6)
[2020-01-19 04:10] VITALS: BP 102/58
--- NOTE | 2020-01-19 05:45 | NUR ---
SLEPT WELL TONIGHT. O2 REMAINS ON. NO CHANGE IN ASSESSMENT. TELEMETRY CONT TO SHOW SR WITH PVC. HS GOALS OF REST AND SAFETY ACHIEVED. HOURLY ROUNDING OBSERVED.
[2020-01-19 08:00] VITALS: BP 112/62
[2020-01-19] MEDS ORDERED: CEFDINIR300 MG PO (09:56)
[2020-01-19 10:04] LABS: ALBUMIN 2.8 g/dL (3.4-5.0); CREATININE 1.1 mg/dL (0.6-1.3); POTASSIUM 3.7 mmol/L (3.5-5.1); TOTAL BILIRUBIN 0.7 mg/dL (<0.1-1.0); TOTAL PROTEIN 6.5 g/dL (6.4-8.2)
[2020-01-19 10:12] LABS: CALCIUM 8.4 mg/dL (8.5-10.1)
[2020-01-19 12:00] VITALS: BP 119/58
--- NOTE | 2020-01-19 13:45 | NUR ---
ASSUMED CARE OF PATIENT THIS AM AT 0730. PATIENT IS ALERT AND ORIENTED X 4. HIS O2 SATS WERE IN THE 80S THIS AM. PATIENT'S O2 INCREASED INITALLY TO 5 LITERS AND LATER DECREASED BACK TO 3 LITERS. HIS SATS DECREASED AGAIN. PATIENT ENCOURAGED TO PERFORM IS. O2 INCREASED TO [address] CORMIER NOTIFIED. IV LASIX ORDERED AND GIVEN. PATIENT ASSISTED UP TO THE CHAIR. IV FLUIDS COMPLETED. PATIENT REMAINS UP IN THE CHAIR AT THIS TIME. TELE SHOWS SR WITH PVCS. WILL CONTINUE TO MONITOR.
--- NOTE | 2020-01-19 15:05 | NUR ---
CM INFORMED DURING PRIME ROUNDING OF THE PLAN OF CARE FOR THE PT INCLUDING PLAN FOR PT TO REMAIN ON I.V. ABT'S. PT REMAINS ON O2 AT 3.5L VIA NC. CM WILL REMAIN AVAILABLE TO ASSIST AND FOLLOW NEEDED.
[2020-01-19 16:00] VITALS: BP 116/61
[2020-01-19 20:00] VITALS: BP 133/71
[2020-01-20 00:06] VITALS: BP 120/67
[2020-01-20 04:40] LABS: CALCIUM 8.3 mg/dL (8.5-10.1); CREATININE 0.9 mg/dL (0.6-1.3); POTASSIUM 3.8 mmol/L (3.5-5.1)
[2020-01-20 05:07] VITALS: BP 105/66
[2020-01-20 08:45] VITALS: BP 101/55
[2020-01-20 12:00] VITALS: BP 130/49; BP 130/79
[2020-01-20 16:00] VITALS: BP 107/88
--- NOTE | 2020-01-20 18:18 | NUR ---
PT IS ALERT AND ORIENTED X4 HAD MULTIPLE COUGHING SPELLS THIS AM COUGHING UP BLOOD TINGED SPUTUM STILL HAD TO BE INCREASED TO 10L HI LILY FROM DESATS TO 75% WHEN UP TO BATHROOM ONLY AT 92% THIS AM BUT SLOWLY GOT BETTER THROUGHOUT THE DAY IS NOW 3L NC AND SATS AT 95% BUT WITH EXERTION STILL DESATS PT REALLY WANTS TO GO HOME BUT DOESN'T USE O2 AT HOME DENIES ANY PAIN OR DISCOMFORT SR TO ST ON THE MONITOR NO QUESTIONS OR CONCERNS CALL LIGHT IN REACH IN BED
[2020-01-20 20:00] VITALS: BP 125/71
[2020-01-21] VITALS: BP 112/56
[2020-01-21 04:33] VITALS: BP 115/57
[2020-01-21 08:30] VITALS: BP 108/56
[2020-01-21 11:00] VITALS: BP 110/53
[2020-01-21 11:17] VITALS: BP 108/56
--- NOTE | 2020-01-21 18:02 | NUR ---
PT DISCHARGED HOME WITH OXYGEN, RT DID REST AND EXERCISE AND PT WENT UP TO 10L TO SUSTAIN PT WAS ADAMANT ABOUT GOING HOME AND DR DISCHARGED WITH HOME O2 FAHAD CAME TO GIVE O2 TANK AND DROP OFF O2 AT HOME EDUCATION ON CONCERNS WITH THAT AMOUNT OF OXYGEN AND WHAT TO DO IF PT CANNOT GET OXYGEN LEVELS BACK UP DID EDUCATION WITH PT'S WELL BOTH IN UNDERSTANDING
== END 2020-01-21 17:30 | disposition home or self-care (01) | DRG 871 ==
LOC: M.ERS 18:09 → M.TBA-ER 21:04 → M.2W 21:04
PROVIDERS: Family Medicine; Internal Medicine; Nurse Practitioner Family; ADMIT Internal Medicine; ATTEND Internal Medicine
PROC: 5A0935A Assistance with Respiratory Ventilation, Less than 24 Consecutive Hours, High Flow/Velocity Cannula (ICD-10-PCS; principal; 2020-01-20)
DX: A41.50 Gram-negative sepsis, unspecified (principal); J96.01 Acute respiratory failure with hypoxia; J15.6 Pneumonia due to other Gram-negative bacteria; N17.0 Acute kidney failure with tubular necrosis; J44.1 Chronic obstructive pulmonary disease with (acute) exacerbation; J44.0 Chronic obstructive pulmonary disease with (acute) lower respiratory infection; E44.0 Moderate protein-calorie malnutrition; N40.0 Benign prostatic hyperplasia without lower urinary tract symptoms; I25.10 Atherosclerotic heart disease of native coronary artery without angina pectoris; E87.5 Hyperkalemia; K27.9 Peptic ulcer, site unspecified, unspecified as acute or chronic, without hemorrhage or perforation; I95.9 Hypotension, unspecified; D64.9 Anemia, unspecified; N18.30 Chronic kidney disease, stage 3 unspecified; F32.9 Major depressive disorder, single episode, unspecified; Z20.828 Contact with and (suspected) exposure to other viral communicable diseases; Z90.49 Acquired absence of other specified parts of digestive tract; I25.2 Old myocardial infarction; Z98.49 Cataract extraction status, unspecified eye; Z79.01 Long term (current) use of anticoagulants; Z79.82 Long term (current) use of aspirin; Z79.899 Other long term (current) drug therapy; Z87.891 Personal history of nicotine dependence; Z68.26 Body mass index [BMI] 26.0-26.9, adult

== ENCOUNTER 2020-01-24 09:34 | Inpatient (IN) | payer OTHER ==
[~2020-01-24] VITALS: Ht 180.3 cm; Wt 82.0 kg
[~2020-01-24 09:34] MED LIST changes: +CEFDINIR300 MG PO
[2020-01-24 09:36] VITALS: BP 122/65
[2020-01-24 10:21] LABS: HEMATOCRIT 41.6 % (42.0-52.0); HEMOGLOBIN 13.9 gm/dL (14.0-18.0); MCH 30.8 pg (26.0-34.0); MCHC 33.3 g/dL (28.0-37.0); MCV 92.5 fL (80.0-100.0); MPV 7.1 fl. (7.2-11.1); NUCLEATED RBCS 0 /100WBC; PLATELET COUNT* 359 thou/uL (150-400); RDW-CV 13.9 % (10.5-14.5)
[2020-01-24 10:43] LABS: CALCIUM 7.9 mg/dL (8.5-10.1); POTASSIUM 3.7 mmol/L (3.5-5.1)
[2020-01-24 10:49] LABS: ALBUMIN 2.7 g/dL (3.4-5.0); MAGNESIUM 2.2 mg/dL (1.8-2.4); TOTAL BILIRUBIN 1.2 mg/dL (<0.1-1.0); TOTAL PROTEIN 6.4 g/dL (6.4-8.2)
[2020-01-24 11:08] LABS: ABSOLUTE BASOPHILS 0.1 thou/uL (0.0-0.2); ABSOLUTE EOSINOPHILS 0.7 thou/uL (0.0-0.7); ABSOLUTE MONOCYTES 1.8 thou/uL (0.0-1.2); ABSOLUTE NEUTROPHILS 9.4 thou/uL (1.6-8.1); ATYPICAL LYMPHS 2 %
[2020-01-24 11:09] LABS: CLUMPED PLTS FEW; PLATELET ESTIMATE ADEQUATE
[2020-01-24 11:14] LABS: APTT 22.5 Seconds (25.0-31.3); PROTIME 10.7 Seconds (9.20-11.50)
[2020-01-24 12:53] VITALS: BP 112/60
[2020-01-24 14:00] VITALS: BP 98/50
--- NOTE | 2020-01-24 15:35 | EKG ---
[place] [address] ELECTROCARDIOGRAM REPORT Name: EVANSAlanMERLINE Room: [address] ADM IN .R.#: [id number] Admission: 01/24/20 Attend Phys: Teri Wong, Discharge: Date of : 43 Date of Service: 01/24/20 0944 Report #: [id number] THIS REPORT FOR: //name// [facility] ED Test Date: 2020-01-24 Test Time: 09:44:16 Pat Name: MERLINE LUJAN Department: Room: [facility] Gender: M Renal Medicine Physician: : 1945 Requested By: Mian Guo Order Number: [id number] MD: Gabo Arce Measurements Intervals [place] Rate: 74 P: -9 ID: 141 QRS: 35 QRSD: 80 T: 38 QT: 404 QTc: 449 Interpretive Statements Sinus rhythm Multiple ventricular premature complexes Abnormal R-wave progression, early transition Compared to ECG 01/15/2020 18:51:13 T-wave abnormality no longer present Electronically Signed On 01-24-2020 15:35:00 HIRED HELP by Gabo Arce [email or web address] <ELECTRONICALLY SIGNED> By: Gabo Arce MD, [facility] 01/24/20 1535 0944 0944 Gabo Arce MD, [facility] /EPI
[2020-01-24 16:39] VITALS: BP 113/61
--- NOTE | 2020-01-24 18:37 | NUR ---
PT AO X4 TO UNIT AROUND 1400. HE HAD RECENTLY BEEN ADMITTED FOR PNEUMONIA AND WAS HERE FOR ABOUT ONE WEEK AND DISCHARGED ON WEDNESDAY TO HOME. SINCE THEN HE HAS HAD INCREASED DYSPNEA AND STATES HIS SATS HAVE BEEN IN UPPER 80s UPON WAKING IN THE AM. HE IS CHILLED AND HYPOTENSIVE, RECEIVING 2L BOLUS IN ED. PT WENT FOR VQ SCAN ONCE TO FLOOR. HE DENIES PAIN AND IS VOIDING PER URINAL.
[2020-01-24 21:00] VITALS: BP 94/53
[2020-01-25 00:30] VITALS: BP 117/79
[2020-01-25 04:46] VITALS: BP 106/58
--- NOTE | 2020-01-25 05:04 | NUR ---
PT SLEPT MOST OF SHIFT. ASSESSMENT DOCUMENTED. MEDS GIVEN PER E-MAR. IV PATENT. NO REPORTS OF PAIN. ISOLATION MAINTAINED.
[2020-01-25 05:14] LABS: HEMATOCRIT 36.8 % (42.0-52.0); HEMOGLOBIN 12.5 gm/dL (14.0-18.0); MCH 31.1 pg (26.0-34.0); MCHC 33.9 g/dL (28.0-37.0); MCV 91.8 fL (80.0-100.0); MPV 7.4 fl. (7.2-11.1); RBC 4.01 mil/uL (4.50-6.00); RDW-CV 14.1 % (10.5-14.5); WBC 15.1 thou/uL (4.0-11.0)
[2020-01-25 05:38] LABS: CALCIUM 8.3 mg/dL (8.5-10.1); MAGNESIUM 2.5 mg/dL (1.8-2.4); POTASSIUM 4.2 mmol/L (3.5-5.1)
[2020-01-25 08:00] VITALS: BP 107/59
[2020-01-25 11:49] LABS: INFLUENZA A ANTIGEN Negative (Negative); INFLUENZA B ANTIGEN Negative (Negative)
[2020-01-25 12:00] VITALS: BP 90/51
[2020-01-25 15:54] VITALS: BP 115/55
--- NOTE | 2020-01-25 18:11 | NUR ---
ASSUMED PT CARE AT 0730, PT AOX4, NO C/O PAIN OR SHORTNESS OF BREATH BUT STATES HE GETS SHORT OF BREATH WHEN MOVING AROUND. PT MOVES SELF AROUND IN BED AND GETS UP TO COMODE BY SELF. PT GOAL IS TO KEEP SATS ABOVE 90% AND INCREASE ACTIVITY. AM ASSESSMENT CHARTED, MEDS PER MAR, HOURLY ROUNDING OBSERVED, CALL LIGHT W/IN REACH.
[2020-01-25 20:00] VITALS: BP 142/68
--- NOTE | 2020-01-25 20:00 | NUR ---
RECEIVED REPORT AND ASSUMED CARE OF PT, ASSESSMENT COMPLETED. PT VERY SOA AFTER COUGHING. DRY HACKY NON-PROD COUGH. O2 ON AT 4L/HFC WITH SAT OF 78%. INCREASED SLOWLY TO 8L WITH SAT OF 88%. RESP NOTIFIED. TELEMETRY ON SHOWING SR. WILL CONT TO MONITOR AND ASSIST NEEDED.
[2020-01-26] VITALS (8 sets, daily range): BP systolic 91–122; BP diastolic 45–72
[2020-01-26 06:17] LABS: ABSOLUTE BASOPHILS 0.1 thou/uL (0.0-0.2); ABSOLUTE EOSINOPHILS 0.2 thou/uL (0.0-0.7); ABSOLUTE LYMPHOCYTES 1.9 thou/uL (0.8-5.3); ABSOLUTE MONOCYTES 2.6 thou/uL (0.0-1.2); ABSOLUTE NEUTROPHILS 12.2 thou/uL (1.6-8.1); BASOPHILS 0.7 %; EOSINOPHILS 1.3 %; HEMATOCRIT 39.6 % (42.0-52.0); HEMOGLOBIN 13.2 gm/dL (14.0-18.0); LYMPHOCYTES 11.3 %; MCH 31.1 pg (26.0-34.0); MCHC 33.5 g/dL (28.0-37.0); MCV 92.9 fL (80.0-100.0); MONOCYTES 15.1 %; NUCLEATED RBCS 0 /100WBC; PLATELET COUNT* 327 thou/uL (150-400); POLYS 71.6 %; RBC 4.26 mil/uL (4.50-6.00); RDW-CV 14.1 % (10.5-14.5)
[2020-01-26 06:41] LABS: CALCIUM 8.9 mg/dL (8.5-10.1); CREATININE 1.2 mg/dL (0.6-1.3); MAGNESIUM 2.4 mg/dL (1.8-2.4)
--- NOTE | 2020-01-26 06:44 | NUR ---
AWAKE MOST OF NIGHT, SHORT NAPS. HAVING COUGHING SPELLS, DURING THIS PERIOD DESATS INTO MID 80'S, SLOW RECOVERY. COUGHING UP BLOOD TINGED SPUTUM. NO OTHER CHANGE IN ASSESSMENT. HS GOALS OF REST AND SAFETY ONLY PARTICALLY ACHIEVED. HOURLY ROUNDING OBSERVED.
--- NOTE | 2020-01-26 09:10 | NUR ---
PT A&OX4 VSS. PT HAS INCREASED OXYGEN NEEDS OVERNIGHT. PT REMAINS CONTINENT OF B/B. PT UP TO BSC WITH MODERATE ASSISTANCE. PT SINUS ON MONITOR. SOLUMEDROL IV PUSH PER DR LE PRIOR TO TRANSFER TO 2ND FLOOR. IV TO LAC PATENT, C/D/I. PER RT THIS AM PT CONTINUES TO HAVE INCREASED O2 NEEDS. PT ON 15L HIGH FLOW AND RT RECOMMENDS BIPAP. PHYSICIAN NOTIFIED, HOUSE SUPER NOTIFIED AND PT MOVED TO NEG PRESSURE ROOM ON TELE UNIT. PT LEFT UNIT WITH ALL PERSONAL BELONGINGS. NEW ISO CART ACQUIRED AND MOVED WITH PT WELL. REPORT WAS CALLED TO SHMUEL RN PRIOR TO TRANSFER. RT ARRIVED WITH PT AND BIPAP WELL. PHARMACY DELIVERED NEW IV MEDS PT WAS LEAVING UNIT. MEDS AND CHART ACCOMPANIED PT TO NEW UNIT.
[2020-01-26 09:41] LABS: BE -2.9 mmol/L (-2 to +3); PCO2 24.9 mmHg (35.0-45.0); PO2 60.2 mmHg (75.0-100.0); pH 7.493 (7.340-7.450)
--- NOTE | 2020-01-26 11:00 | NUR ---
CM ATTEMPTED TO SPEAK TO THE PT VIA THE HOSPITAL ROOM PHONE THE PT IS CURRENTLY UNDER ENHANCED PRECAUTIONS FOR PENDING PCR RESULTS. NO ANSWER. PT IS KNOWN TO CM FROM PREVIOUS ADMISSION. CM SPOKE TO PT'S SPOUSE AND SHE CONFIRMS THE ONLY CHANGE IS THAT THE PT HAS D/C'S AT HIS LAST ADMISSION WITH HOME OXYGEN. PT WAS ON 10L O2 PROVIDED BY [facility]. PT NORMALLY A&O, INDEPENDENT WITH ADL'S, ACTIVE AND ABLE TO DRIVE. PT USES NO OTHER DME. PT HAS 0 HX OF HHOR SNF. CM WILL REMAIN AVAILABLE TO ASSIST AND FOLLOW NEEDED.
--- NOTE | 2020-01-26 12:42 | NUR ---
PATIENT ARRIVED THIS AM AT 0940 FROM ORTHO SURG UNIT. PATIENT PLACED ON TELE MONITOR. PATIENT ORIENTED TO ROOM AND PROCEDURES. 02 SATS 88 TO 91% ON 15 LITERS. RESPIRATIONS LABORED. AM MEDICATIONS AND ANTIBIOTICS STARTED. PATIENT WAS UP TO THE BATHROOM X 1. HIS O2 SATS DECREASED TO 70'S WITH A VERY SLOW RECOVERY. RESPIRATORY CALLED TO PLACE PATIENT ON BIPAP.
[2020-01-27 04:28] LABS: HEMATOCRIT 36.4 % (42.0-52.0); HEMOGLOBIN 12.3 gm/dL (14.0-18.0); MCH 31.6 pg (26.0-34.0); MCHC 33.9 g/dL (28.0-37.0); MCV 93.2 fL (80.0-100.0); MPV 7.7 fl. (7.2-11.1); RBC 3.91 mil/uL (4.50-6.00); RDW-CV 14.1 % (10.5-14.5); WBC 19.8 thou/uL (4.0-11.0)
[2020-01-27 04:39] LABS: ALBUMIN 2.4 g/dL (3.4-5.0); CALCIUM 8.9 mg/dL (8.5-10.1); CREATININE 0.9 mg/dL (0.6-1.3); MAGNESIUM 2.3 mg/dL (1.8-2.4); POTASSIUM 4.1 mmol/L (3.5-5.1); TOTAL BILIRUBIN 0.8 mg/dL (<0.1-1.0); TOTAL PROTEIN 6.4 g/dL (6.4-8.2)
[2020-01-27 05:45] LABS: URINE BILIRUBIN NEGATIVE (Negative); URINE BLOOD TRACE (Negative); URINE CLARITY CLEAR; URINE COLOR YELLOW; URINE GLUCOSE-RANDOM 1+ (Negative); URINE KETONES NEGATIVE (Negative); URINE LEUKOCYTES NEGATIVE (Negative); URINE NITRITE NEGATIVE (Negative); URINE PROTEIN NEGATIVE (Negative); URINE SPECIFIC GRAVITY >= 1.030 (1.005-1.030); URINE UROBILINOGEN 0.2 E.U./dl (0.2-1.0)
[2020-01-27 09:15] VITALS: BP 98/65
[2020-01-27 13:20] VITALS: BP 91/42
[2020-01-27 17:38] VITALS: BP 101/46
[2020-01-27 18:17] VITALS: BP 90/54
--- NOTE | 2020-01-27 18:45 | NUR ---
RECEIVED REPORT. ASSUMED CARE OF PT AROUND 0730. AM ASSESSMENT AND VITALS COMPLETED CHARTED. MEDS PER EMAR. PT DENIED PAIN THIS SHIFT. MORPHINE GIVEN X1 FOR AIR HUNGER. PT TOLERATED HEATED HIGH FLOW THIS SHIFT, BUT SATS 85-95%. DID DESAT DOWN TO LOW 80'S THIS AFTERNOON - RT PAGED. RT SAID CONDENSATION HAD GATHERED IN TUBE OF HIGH FLOW CANNULA; WATER WAS DRAINED BACK INTO RESERVIOR AND PT SATS IMMEDIATELY FRANCISCO JAVIER TO AGAIN. PT OVERALL FEELING MUCH BETTER. APPETITE FAIR. PCR NEGATIVE FOR COVID. PT HAPPY THAT PLANS TO VISIT TOMORROW. PT ALSO HYPOTENSIVE THIS SHIFT - NOTIFIED, NO ORDERS RECEIVED. PT CURRENTLY RESTING IN BED. CALL LIGHT IS WITHIN REACH. FALL PRECAUTIONS IN PLACE. HOURLY ROUNDING PERFORMED.
[2020-01-27 20:00] VITALS: BP 100/55
[2020-01-28] VITALS: BP 106/65
[2020-01-28 04:00] VITALS: BP 125/62
[2020-01-28 05:05] LABS: HEMOGLOBIN 11.7 gm/dL (14.0-18.0); MCHC 33.4 g/dL (28.0-37.0); MCV 93.1 fL (80.0-100.0); MPV 7.6 fl. (7.2-11.1); RBC 3.76 mil/uL (4.50-6.00); RDW-CV 14.3 % (10.5-14.5); WBC 21.5 thou/uL (4.0-11.0)
[2020-01-28 05:25] LABS: ALBUMIN 2.3 g/dL (3.4-5.0); CREATININE 0.9 mg/dL (0.6-1.3); MAGNESIUM 2.2 mg/dL (1.8-2.4); POTASSIUM 4.3 mmol/L (3.5-5.1); TOTAL BILIRUBIN 0.6 mg/dL (<0.1-1.0); TOTAL PROTEIN 6.2 g/dL (6.4-8.2)
[2020-01-28 08:25] VITALS: BP 114/63
--- NOTE | 2020-01-28 09:14 | NUR ---
PT WAS FOUND ON THE FLOOR BY RN AFTER HEARING OXYGEN POPPED OFF THE WALL. PT WAS SITTING ON THE FLOOR IN A BOWEL MOVEMENT. STAFF ASSISTED PT BACK TO BED. O2 SAT RETURNED TO 90'S QUICKLY AFTER PUTTING O2 BACK ON. PEERLA. ORIENTED TO SELF LALITHA BASEELIN. PT LAUGHING AND JOKING WITH STAFF PER NORMAL MOOD OBSERVEDD BY THIS RN PAST 3 NIGHT SHIFTS. PT DENIES ANY DISCOMFORT EXCEPT SORE AREA ON CROWN OF HEAD. NO VISIBLE INJURY. PT DENIED NEED FOR PAIN MEDICATION. [employer] PROJECT MANAGER AND SURPERVISOR PRESENT TO HELP ASSIST PT BACK INTO BED. MADE AWARE OF ABOVE FINDINGS. NO NEW ORDERS. NOTIFIED . UNDERSTANDING AND ACKOWLEDGE HE HAS SAME BEHAVIORS @ HOME. DAY RN NOTIFIED. ALL FALL RISK INTERVENTIONS IN PLACE. VSS.
[2020-01-28 12:31] VITALS: BP 94/48
[2020-01-28 17:08] VITALS: BP 105/62
--- NOTE | 2020-01-28 18:40 | NUR ---
RECEIVED REPORT. ASSUMED CARE OF PT AROUND 0730. AM ASSESSMENT AND VITALS COMPLTED CHARTED. CHEMICAL ECONOMIST IN PLACE. MEDS PER EMAR. DENIED PAIN. APPETITE FAIR. REMAINS ON HEATED HIGH FLOW BETWEEN 50-55 LITERS DEPENDING ON ACTIVITY. UP TO COMMODE TODAY FOR BM. DESATED DURING TO 78% BUT RECOVERED WITH INCREASED OXYGENATION. LARGE BM. OXYGEN SETTINGS DECREASED BY END OF SHIFT TO 50L AT 75%. VISITED TWICE TODAY. PT CURRENTLY WATCHING TV IN BED. CALL LIGHT IS WITHIN REACH. HOURLY ROUNDING PERFORMED. FALL PRECAUTIONS IN PLACE.
[2020-01-28 20:00] VITALS: BP 137/63
[2020-01-29 00:08] VITALS: BP 141/63
[2020-01-29 04:38] LABS: HEMATOCRIT 33.7 % (42.0-52.0); HEMOGLOBIN 11.5 gm/dL (14.0-18.0); MCH 31.7 pg (26.0-34.0); MCHC 34.1 g/dL (28.0-37.0); MCV 92.8 fL (80.0-100.0); MPV 7.6 fl. (7.2-11.1); RBC 3.63 mil/uL (4.50-6.00); RDW-CV 13.9 % (10.5-14.5); WBC 17.1 thou/uL (4.0-11.0)
[2020-01-29 05:13] LABS: CALCIUM 8.2 mg/dL (8.5-10.1); CREATININE 0.8 mg/dL (0.6-1.3); MAGNESIUM 2.2 mg/dL (1.8-2.4); POTASSIUM 4.3 mmol/L (3.5-5.1)
[2020-01-29 05:48] VITALS: BP 118/68
--- NOTE | 2020-01-29 06:50 | NUR ---
NURSING ASSESSMENT COMPLETED AT START OF SHIFT. PT VOICED NO CONCERNS THIS SHIFT. CONTINUES ON OPIFLOW 50L 75%. BIPAP AT HS. PT DESATS INTO HIGH 70'S-LOW 80'S WITH ACTIVITY. HOURLY ROUNDING COMPLETED. Q2H REPOSITIONING COMPLETED. CALL LIGHT WITHIN REACH.
--- NOTE | 2020-01-29 07:05 | NUR ---
CHANGE OF SHIFT BEDSIDE REPORT GIVEN PATIENT SEEN AT BEDSIDE IN BED RESTING ON BIPAP ASSUMED PATIENT CARE
[2020-01-29 08:00] VITALS: BP 124/49
[2020-01-29 12:31] VITALS: BP 102/61
--- NOTE | 2020-01-29 14:56 | NUR ---
CM INFORMED DURING PRIME ROUNDING OF THE PLAN OF CARE FOR THE PT INCLUDING PT'S CONTINUED NEED FOR O2 AND PENDING PULM CONSULT. PT MAY NEED SNF PLACEMENT AT D/C DEPENDING OF MOBILITY AND ABILITY TO MAKE FUNCTIONAL PROGRESS PRIOR TO D/C. CM WILL REMAIN AVAILABLE TO ASSIST AND FOLLOW NEEDED.
[2020-01-29 16:00] VITALS: BP 97/61
--- NOTE | 2020-01-29 16:39 | 2DMMODE ---
[place] [address] 2 D/M-MODE ECHOCARDIOGRAM Name: MERLINE LUJAN Room: [place] [address] ADM IN Alex#: [id number] Admission: 01/24/20 Attend Phys: Teri Wong, Discharge: Date of : 43 Date of Service: 01/29/20 1639 Report #: [id number] THIS REPORT FOR: cc: Cece Patricia,Taz Daniel MD [facility] ~ APPROVED REPORT Study performed: 01/29/2020 15:15:00 EXAM: Comprehensive 2D, Doppler, and color-flow Echocardiogram Patient Location: In-Patient Room #: [facility] Status: routine BSA: 2.05 HR: 77 bpm BP: 102/61 mmHg Rhythm: NSR Other Information Study Quality: Good Indications Dyspnea 2D Dimensions IVSd: 9.50 (7-11mm) LVOT Diam: 18.16 (18-24mm) LVDd: 42.35 mm PWd: 8.31 (7-11mm) Ascending Ao: 29.27 (22-36mm) LVDs: 20.83 (25-40mm) Aortic Root: 31.97 mm Volumes Left Atrial Volume (Systole) LA ESV Index: 18.60 mL/m2 Aortic Valve AoV Peak Virgil.: 1.16 m/s AO Peak Gr.: 5.36 mmHg LVOT Max P.12 mmHg AO Mean Gr.: 2.78 mmHg LVOT Mean P.93 mmHg LVOT Max V: 1.01 m/s AO V2 VTI: 24.50 cm LVOT Mean V: 0.63 m/s KEVIN (VTI): 2.15 cm2 LVOT V1 VTI: 20.36 [place] [address] 2 D/M-MODE ECHOCARDIOGRAM Name: MERLINE LUJAN Room: [address] IN [facility]#: [id number] Admission: 01/24/20 Attend Phys: Teri Wong, Discharge: Date of : 43 Date of Service: 01/29/20 1639 Report #: [id number] Mitral Valve E/A Ratio: 0.70 MV Decel. Time: 221.70 ms MV E Max Virgil.: 0.71 m/s MV PHT: 64.29 ms MVA (PHT): 3.42 cm2 TDI E/Lateral E': 7.89 E/Medial E': 7.10 Medial E' Virgil.: 0.10 m/s Lateral E' Virgil.: 0.09 m/s Pulmonary Valve PV Peak Virgil.: 0.93 m/s PV Peak Gr.: 3.43 mmHg Tricuspid Valve RAP Estimate: 5.00 mmHg TR Peak Gr.: 32.72 mmHg RVSP: 37.00 mmHg PA Pressure: 37.00 mmHg Left Ventricle The left ventricle is normal size. There is normal LV segmental wall motion. There is normal left ventricular wall thickness. Left ventricular systolic function is normal. The left ventricular ejection fraction is within the normal range. LVEF is 60-65%. Grade I - abnormal relaxation pattern. Right Ventricle The right ventricle is normal size. The right ventricular systolic function is normal. Atria The left atrium size is normal. The right atrium size is normal. Aortic Valve Mild aortic valve sclerosis. Mild aortic regurgitation. There is no aortic valvular stenosis. Mitral Valve The mitral valve is normal in structure. Trace mitral regurgitation. No evidence of mitral valve stenosis. Tricuspid Valve The tricuspid valve is normal in structure. Mild tricuspid regurgitation. estimated pa pressure 40 [place] [address] 2 D/M-MODE ECHOCARDIOGRAM Name: MERLINE LUJAN Room: [address] IN [facility]#: [id number] Admission: 01/24/20 Attend Phys: Teri Wong, Discharge: Date of : 43 Date of Service: 01/29/20 1639 Report #: [id number] Pulmonic Valve Pulmonic valve is not well visualized. Trace pulmonic regurgitation. Great Vessels The aortic root is normal in size. The inferior vena cava is not well visualized. Pericardium There is no pericardial effusion. <Conclusion> LVEF is 60-65%. Mild aortic valve sclerosis. Mild aortic regurgitation. Mild tricuspid regurgitation. estimated pa pressure 40 mm Hg <ELECTRONICALLY SIGNED> By: Taz Finn MD, FACC 01/29/20 1639 38 38 Taz Finn MD, FACC /INF
[2020-01-29 17:17] LABS: CALCIUM 8.3 mg/dL (8.5-10.1); POTASSIUM 3.8 mmol/L (3.5-5.1)
[2020-01-29 20:00] VITALS: BP 109/58
[2020-01-30 00:30] VITALS: BP 166/55
[2020-01-30 04:21] VITALS: BP 116/64
[2020-01-30 04:32] LABS: HEMATOCRIT 34.9 % (42.0-52.0); HEMOGLOBIN 12.1 gm/dL (14.0-18.0); MCH 31.6 pg (26.0-34.0); MCHC 34.7 g/dL (28.0-37.0); MCV 91.1 fL (80.0-100.0); MPV 7.5 fl. (7.2-11.1); RBC 3.83 mil/uL (4.50-6.00); WBC 17.8 thou/uL (4.0-11.0)
[2020-01-30 05:03] LABS: ALBUMIN 2.3 g/dL (3.4-5.0); CALCIUM 8.2 mg/dL (8.5-10.1); CREATININE 0.9 mg/dL (0.6-1.3); MAGNESIUM 2.3 mg/dL (1.8-2.4); TOTAL BILIRUBIN 0.8 mg/dL (<0.1-1.0); TOTAL PROTEIN 5.9 g/dL (6.4-8.2)
--- NOTE | 2020-01-30 06:50 | NUR ---
NURSING ASSESSMENT COMPLTED AT START OF SHIFT. PT CONTINUES ON HEATED HIGH FLOW 50L. SR/SB ON SODA DISPENSER. DENIES PAIN THIS SHIFT. HOURLY ROUNDING COMPLETED. COMPLIANT WITH BIPAP WHILE ASLEEP. HOURLY ROUNDING COMPLETED. CALL LIGHT WITHIN REACH.
[2020-01-30 09:30] VITALS: BP 105/53
[2020-01-30 13:12] VITALS: BP 105/57
--- NOTE | 2020-01-30 13:33 | NUR ---
CM INFORMED DURING PRIME ROUNDING OF THE PLAN OF CARE FOR THE PT INCLUDING PENDING PULM CONSULT. PT REMAINS ON HEATED HIGH FLOW O2 AT 50L. CM WILL REMAIN AVAILABLE TO ASSIST AND FOLLOW NEEDED.
[2020-01-30 15:43] VITALS: BP 116/64
[2020-01-30 19:30] VITALS: BP 116/58
[2020-01-31] VITALS: BP 125/75
[2020-01-31 03:58] LABS: HEMATOCRIT 36.2 % (42.0-52.0); HEMOGLOBIN 12.3 gm/dL (14.0-18.0); MCH 31.1 pg (26.0-34.0); MCHC 34.1 g/dL (28.0-37.0); MCV 91.3 fL (80.0-100.0); MPV 7.4 fl. (7.2-11.1); NUCLEATED RBCS 0 /100WBC; PLATELET COUNT* 285 thou/uL (150-400); RBC 3.96 mil/uL (4.50-6.00); WBC 17.1 thou/uL (4.0-11.0)
[2020-01-31 04:00] VITALS: BP 116/70
[2020-01-31 04:28] LABS: ALBUMIN 2.7 g/dL (3.4-5.0); CALCIUM 8.5 mg/dL (8.5-10.1); CREATININE 0.9 mg/dL (0.6-1.3); POTASSIUM 3.9 mmol/L (3.5-5.1); TOTAL BILIRUBIN 0.7 mg/dL (<0.1-1.0); TOTAL PROTEIN 6.1 g/dL (6.4-8.2)
[2020-01-31 06:38] LABS: ABSOLUTE LYMPHOCYTES 1.7 thou/uL (0.8-5.3); ABSOLUTE MONOCYTES 0.3 thou/uL (0.0-1.2); METAMYELOCYTES 1 %; PLATELET ESTIMATE ADEQUATE
--- NOTE | 2020-01-31 07:21 | NUR ---
ASSUMED PT CARE AT 1915. NURSING ASSESSMENT COMPLETED AT START OF SHIFT. SB/SR WITH PAC/PVCS THIS SHIFT. HOURLY ROUNDING COMPLETED. CONTINUES ON HEATED HIGH FLOW/ BIPAP AT NIGHT. CALL LIGHT WITHIN REACH.
[2020-01-31 08:35] VITALS: BP 109/69
[2020-01-31 12:16] VITALS: BP 167/74
[2020-01-31 16:16] VITALS: BP 108/64
--- NOTE | 2020-01-31 17:06 | PATH ---
[address] [address] PATHOLOGY RPT PROCEDURE Name: MERLINE LUJAN Room: [place] [address] ADM IN [facility]#: [id number] Admission: 01/24/20 Date of : 43 Discharge: Report #: [id number] Path Case #: [id number] Note [facility] Accession Number: [id number] TESTS RESULT FLAG UNITS REF RANGE LAB Clinician Provided Cytology Information No. of containers..01 Other (Miscellaneous) Source: SPUTUM DIAGNOSIS: 02 SPUTUM NEGATIVE FOR MALIGNANT CELLS. MANY BRONCHIAL EPITHELIAL CELLS, SQUAMOUS CELLS AND PULMONARY MACROPHAGES WITH VERY FEW INFLAMMATORY CELLS. THIS INTERPRETATION INCLUDES EVALUATION OF A CELL BLOCK. Signed out by: 02 Ismael Carr MD, Pathologist NPI- [id number] Performed by: 01 Cece Pickett, Asian Art Curator ([facility]) Gross description: 01 1ML, JAVON, 1TP 1CB /JOSESITO 01/30/2020 1356 Local FLAG LEGEND: L-Low Normal,H-High Normal,LL-Alert Low,HH-Alert High <-Panic Low,>-Panic High,A-Abnormal,AA-Critical Abnormal Performed at: [address] [place] [address] Jose Chowdary MD, [address] [place] [address] [address] [facility], [place] [address] Ismael Carr MD, Specimen Comment: A courtesy copy of this report has been sent to [phone] Specimen Comment: Report sent to / DR LE Specimen Comment: A duplicate report has been generated due to demographic updates. Performed at: [address], [place], [place] [id number] MD Jose Chowdary MD Phone: [phone]
--- NOTE | 2020-01-31 19:01 | NUR ---
PT IS ALERT AND ORIENTED X4 SOA NOTED WITH EXERTION, EATING, AND TALKING. PT CAN DESAT TO MID 70S AT TIMES 65% ON HEATED HI-LILY CANNULA COUGH NOTED WITH SOME SPUTUM AT TIMES PT SAID PT DENIES PAIN GOOD APPETITE CALL LIGHT IN REACH
[2020-01-31 20:00] VITALS: BP 108/62
[2020-02-01] VITALS (8 sets, daily range): BP systolic 99–133; BP diastolic 48–74
--- NOTE | 2020-02-01 05:41 | NUR ---
ASSUMED PT CARE AT APPROX 1930. PT IS AWAKE AND ORIENTED X4. PT IS TRACING SR WITH OCCASSIONAL PACs AND PVCs. PT DENIES PAIN. PT EASILY DESATURATES TO THE LOW 80's WITH MINIMAL EXCERSION (TALKING/DRINKING WATER) PT REMAINED ON THE HEATED HI-FLOW NASAL CANNULA W/65L OF O2. PT REMAINED ON THE BIPAP AT HS. PT IS CLOSELY MONITORED. CALL LIGHT WITHIN REACH. HOURLY ROUNDING DONE FOR PT SAFETY.
--- NOTE | 2020-02-01 10:36 | NUR ---
Nutrition: pt screen for LOS. Nsg noted pt with good appetite yesterday, no intake records, intake earlier in week noted as fair. Prealbumin WNL. BUN high. Steriods and other meds reviewed. Todays wt down 20 lb from prior wt's this admit and last admit. Question accuracy of current wt; recommend reweigh. Pt does not appear at significant nutrition risk at this time; rec offer supplement PRN.
--- NOTE | 2020-02-01 11:27 | NUR ---
CM INFORMED DURING PRIME ROUNDING OF THE PLAN OF CARE FOR THE PT. PT REMAINS ON IV ABTS AND 95L HEATED HIGH FLOW O2. CM WILL REMAIN AVAILABLE TO ASSIST WITH D/C PLANNING NEEDS.
[2020-02-01 13:43] LABS: ABSOLUTE LYMPHOCYTES 0.7 thou/uL (0.8-5.3); ABSOLUTE MONOCYTES 0.7 thou/uL (0.0-1.2); ABSOLUTE NEUTROPHILS 14.9 thou/uL (1.6-8.1); BASOPHILS 0.2 %; HEMATOCRIT 36.9 % (42.0-52.0); HEMOGLOBIN 12.2 gm/dL (14.0-18.0); LYMPHOCYTES 4.3 %; MCH 31.2 pg (26.0-34.0); MCHC 33.1 g/dL (28.0-37.0); MCV 94.4 fL (80.0-100.0); MONOCYTES 4.2 %; MPV 7.8 fl. (7.2-11.1); NUCLEATED RBCS 0 /100WBC; PLATELET COUNT* 289 thou/uL (150-400); POLYS 91.3 %; RBC 3.91 mil/uL (4.50-6.00); RDW-CV 14.2 % (10.5-14.5); WBC 16.3 thou/uL (4.0-11.0)
[2020-02-01 13:52] LABS: ALBUMIN 3.2 g/dL (3.4-5.0); CALCIUM 8.7 mg/dL (8.5-10.1); CREATININE 0.9 mg/dL (0.6-1.3); POTASSIUM 4.1 mmol/L (3.5-5.1); TOTAL BILIRUBIN 0.7 mg/dL (<0.1-1.0); TOTAL PROTEIN 6.4 g/dL (6.4-8.2)
[2020-02-01 18:31] LABS: ABSOLUTE LYMPHOCYTES 0.4 thou/uL (0.8-5.3); ABSOLUTE MONOCYTES 0.6 thou/uL (0.0-1.2); ABSOLUTE NEUTROPHILS 17.8 thou/uL (1.6-8.1); BASOPHILS 0.1 %; EOSINOPHILS 0.1 %; HEMATOCRIT 41.4 % (42.0-52.0); HEMOGLOBIN 13.7 gm/dL (14.0-18.0); LYMPHOCYTES 2.3 %; MCH 31.2 pg (26.0-34.0); MCHC 33.1 g/dL (28.0-37.0); MCV 94.5 fL (80.0-100.0); MONOCYTES 3.2 %; MPV 7.5 fl. (7.2-11.1); NUCLEATED RBCS 0 /100WBC; PLATELET COUNT* 287 thou/uL (150-400); POLYS 94.3 %; RBC 4.38 mil/uL (4.50-6.00); RDW-CV 14.4 % (10.5-14.5); WBC 18.9 thou/uL (4.0-11.0)
[2020-02-01 18:45] LABS: POTASSIUM 4.5 mmol/L (3.5-5.1)
[2020-02-01 18:49] LABS: CALCIUM 8.9 mg/dL (8.5-10.1); CREATININE 1.1 mg/dL (0.6-1.3)
[2020-02-02 05:02] LABS: CALCIUM 8.4 mg/dL (8.5-10.1); CREATININE 0.9 mg/dL (0.6-1.3); MAGNESIUM 2.3 mg/dL (1.8-2.4); POTASSIUM 4.3 mmol/L (3.5-5.1); TOTAL BILIRUBIN 0.7 mg/dL (<0.1-1.0); TOTAL PROTEIN 6.3 g/dL (6.4-8.2)
[2020-02-02 05:16] VITALS: BP 116/66
[2020-02-02 05:16] LABS: ABSOLUTE LYMPHOCYTES 0.6 thou/uL (0.8-5.3); ABSOLUTE MONOCYTES 0.8 thou/uL (0.0-1.2); ABSOLUTE NEUTROPHILS 19.3 thou/uL (1.6-8.1); BASOPHILS 0.2 %; HEMATOCRIT 37.1 % (42.0-52.0); HEMOGLOBIN 12.4 gm/dL (14.0-18.0); LYMPHOCYTES 2.9 %; MCH 30.9 pg (26.0-34.0); MCHC 33.5 g/dL (28.0-37.0); MCV 92.3 fL (80.0-100.0); MPV 7.8 fl. (7.2-11.1); NUCLEATED RBCS 0 /100WBC; PLATELET COUNT* 278 thou/uL (150-400); POLYS 92.9 %; RBC 4.02 mil/uL (4.50-6.00); RDW-CV 14.1 % (10.5-14.5); WBC 20.8 thou/uL (4.0-11.0)
[2020-02-02 07:30] VITALS: BP 111/64
[2020-02-02 11:30] VITALS: BP 117/68
--- NOTE | 2020-02-02 14:43 | CON ---
[address] [address] CONSULTATION Name: MERLINE LUJAN Room: [place] [address] ADM IN .R.#: [id number] Admission: 01/24/20 Attend Phys: Teri Wong MD Discharge: Date of : 43 Report #: [id number] THIS REPORT FOR: //name// cc: Cece Patricia Linda J. DO ~ DATE OF SERVICE: 01/29/2020 CONSULT REQUESTED BY: Dr. Pedro Luis Blanton. INDICATION FOR CONSULTATION: Acute on chronic hypoxemic respiratory failure. HISTORY OF PRESENT ILLNESS: This is a 74-year-old gentleman with past medical history including a history of COPD as well as pulmonary fibrosis. The patient at baseline requires 5 liters of oxygen. He says that he follows with Dr. Bunch as an outpatient. The patient was recently admitted to this hospital earlier this month and in fact was discharged on 01/21/2020 after treatment for pneumonia. The patient subsequently had worsening respiratory complaints and therefore was readmitted. He was treated for pneumonia during the last hospitalization as well. He does have infiltrates on the chest x-ray performed on the ; however, most of the infiltrates we are seeing now appeared to develop between 01/18/2020 and 01/24/2020. The patient has been treated extensively with azithromycin. He has also received cephalosporins, primarily ceftriaxone as well as cefdinir, but in addition, he also has been on cefepime since 01/26/2020. The patient briefly was also on MRSA coverage with vancomycin on 01/26/2020 and 01/27/2020. There is a sputum culture, which was performed appropriately prior to this being initiated, which is negative for MRSA. There was also a nasal swab performed for MRSA PCR, which was also negative. Both documented to be obtained prior to starting vancomycin. Therefore, vancomycin was subsequently discontinued. The patient, however, has remained significantly hypoxemic. Currently, he is on 97% FiO2 with 50 liters flow on a heated high-flow nasal cannula to maintain O2 saturation in the low 90s. He says he is still short of breath. He has been wheezing. He has a cough. He says he is bringing up small amounts of blood still at times. He does not describe upper respiratory complaints at this time. He does not have chest pain. There is no swelling of lower extremities or calf pain. The patient's blood pressure has been running on the lower side despite the fact that he has been on midodrine 5 mg b.i.d. The patient has been on BiPAP at night. The patient answers to the negative for 12 questions for review of systems [place] [address] CONSULTATION Name: MERLINE LUJAN Room: [place] [address] ADM IN .R.#: [id number] Admission: 01/24/20 Attend Phys: Teri Wong MD Discharge: Date of : 43 Report #: [id number] PAST MEDICAL HISTORY: 1. COPD and pulmonary fibrosis, on 5 liters oxygen at his baseline. 2. Coronary artery disease status post SD. 3. Colon resection. 4. Cataract surgery. 5. Duodenal surgery. 6. Angioplasty. 7. Benign prostatic hypertrophy. SOCIAL HISTORY: Extensive history of smoking in the past. Has now discontinued. Does use alcohol. However, there is no known history of heavy alcohol use. No known history of illegal drug use. ALLERGIES: No known drug allergies. CURRENT MEDICATIONS: List in [facility] reviewed. HOME MEDICATIONS: List in [facility] reviewed. FAMILY HISTORY: There is no pertinent family history. PHYSICAL EXAMINATION: GENERAL: He is alert, awake and oriented, appears to be fairly comfortable; however, he has been saturating only 88-91% on 97% FiO2, heated high-flow nasal cannula with 50 liters flow. VITAL SIGNS: He has a pulse of 84 and a blood pressure of 102/61. His respiratory rate is between 18 and 22. He is afebrile with a temperature of 36.8. HEENT: Head is normocephalic and atraumatic. Pupils are equal and reactive. There is no throat erythema. There is no thrush in his throat. NECK: Does not show raised JVP, asymmetry, mass or lymph nodes. CHEST: Symmetrical expansion on inspection and palpation. On auscultation, breath sounds are bilaterally equal, decreased. I do not hear any added sounds. HEART: Regular. There is no murmur. ABDOMEN: Soft and nontender. EXTREMITIES: Lower extremities show no edema, no calf tenderness. SKIN: Dry and intact. NEUROLOGICAL: Moves all extremities bilaterally equally and spontaneously with no focal deficit identified. IMAGING DATA: The patient's chest x-rays as well as CTA chest are reviewed. I reviewed all his chest x-rays serially as well as his CTA chest films. In summary, there are significant infiltrates [place] [address] CONSULTATION Name: MERLINE LUJAN Room: [place] [address] ADM IN M.James.#: [id number] Admission: 01/24/20 Attend Phys: Teri Wong MD Discharge: Date of : 43 Report #: [id number] background; however, most of the infiltrates that we see now are new and developed between 01/18/2020 and 01/24/2020. LABORATORY DATA: The patient's lab work is in [facility] and this is reviewed. Arterial blood gas consistent with acute on chronic hypoxemic respiratory failure. Workup for COVID-19 and other viral etiologies are negative. ASSESSMENT AND PLAN: 1. Acute on chronic hypoxemic respiratory failure. We will continue to keep him on heated high-flow while awake. We will continue to keep him on a BiPAP while asleep. I will go ahead and increase his BiPAP settings and place him on AVAPS while asleep. 2. Pulmonary infiltrates/pneumonia. We did at this time continue with cefepime. The patient has been extensively treated with azithromycin and we will therefore discontinue. We will add levofloxacin, which will also add Stenotrophomonas maltophilia coverage. The patient had a sputum culture sent again today. We will await this culture result. We will attempt to diurese him as below. We will follow response. I do agree that the likelihood of the patient having MRSA is low. Considering the patient's severe hypoxemia and lack of improvement despite other maximal therapy, if the patient is not better soon, then I may reinitiate MRSA coverage while understanding that this will be of limited benefit. The infiltrates seem to be developed fairly acutely between 01/18/2020 and 01/24/2020. This raises the possibility still as to whether some of this is pulmonary vascular congestion. I would therefore like to diurese him. I have considered albumin; however, it will be fairly high risk to give albumin at this FiO2. Therefore, for now, increase midodrine and we will give Lasix. Down the line, we will consider albumin as well. 2. Chronic obstructive pulmonary disease exacerbation. Continue with Solu-Medrol as well as nebulized bronchodilators as currently prescribed. 3. Pulmonary fibrosis. See discussion above. 4. Cardiac evaluation. I will also do an echo. 5. Evaluation for thromboembolism. CTA chest earlier did not show any evidence of a clot. I would go ahead and repeat a D-dimer. If, as expected, this is elevated, for which there are many other etiologies as well, then I will still do venous Dopplers also. 6. Deep venous thrombosis prophylaxis. I agree with Lovenox as currently ordered. He has had some hemoptysis. We will watch this closely. The patient [place] [address] CONSULTATION Name: MERLINE LUJAN Room: [address] IN [facility]#: [id number] Admission: 01/24/20 Attend Phys: Teri Wong MD Discharge: Date of : 43 Report #: [id number] Total time spent providing critical care to this patient today exceeds 41 minutes. <ELECTRONICALLY SIGNED> By: Mitchell Black MD 02/02/20 1443 1307 [id number] riky Craig
--- NOTE | 2020-02-02 15:50 | NUR ---
CM SEND REFERRALS TO THE [facility]: [facility], [facility] AND [facility]. ALL FACILITIES ARE AT [facility]ACITY, AND HAVE WAIT LIST BUT THEY ARE ACCEPTING REFERRALS. ROMINA CARRINGTON CONTACTED CM TO CONFIRM RECEIPT OF REFERRAL AND STATED HE WILL CONTACT [facility] ON WEDNESDAY TO F/U.
[2020-02-02 16:06] LABS: CALCIUM 8.7 mg/dL (8.5-10.1); CREATININE 0.9 mg/dL (0.6-1.3); MAGNESIUM 2.3 mg/dL (1.8-2.4); POTASSIUM 4.5 mmol/L (3.5-5.1)
[2020-02-02 17:00] VITALS: BP 122/69
--- NOTE | 2020-02-02 18:00 | EKG ---
[place] [address] ELECTROCARDIOGRAM REPORT Name: EVANSAlanMERLINE Room: [place] [address] ADM IN M.R.#: [id number] Admission: 01/24/20 Attend Phys: Teri Wong, Discharge: Date of : 43 Date of Service: 02/01/20 1806 Report #: [id number] THIS REPORT FOR: //name// [facility] Test Date: 2020-02-01 Test Time: 18:06:40 Pat Name: MERLINE LUJAN Department: Room: [place] [address] Gender: M Cone Tender: AT : 1945 Requested By: Aracelis Lopez Order Number: [id number] Christiano MD: Chester Ortega Measurements Intervals Kevil Rate: 91 P: 40 ME: 139 QRS: 24 QRSD: 82 T: 41 QT: 388 QTc: 478 Interpretive Statements Sinus rhythm Ventricular trigeminy Low voltage, precordial leads Abnormal R-wave progression, early transition Borderline prolonged QT interval Compared to ECG 01/24/2020 09:44:16 Low QRS voltage now present Electronically Signed On 02-02-2020 17:59:58 DEPUTY PROSECUTING ATTORNEY by Chester Ortega [email or web address] <ELECTRONICALLY SIGNED> By: Chester Ortega MD, FACC 02/02/20 1759 180 180 Chester Ortega MD, FACC /EPI
[2020-02-02 20:00] VITALS: BP 122/64
[2020-02-03 00:11] VITALS: BP 121/64
[2020-02-03 05:22] VITALS: BP 156/52
[2020-02-03 05:33] LABS: HEMATOCRIT 37.3 % (42.0-52.0); HEMOGLOBIN 12.5 gm/dL (14.0-18.0); MCHC 33.6 g/dL (28.0-37.0); MCV 92.2 fL (80.0-100.0); MPV 7.7 fl. (7.2-11.1); NUCLEATED RBCS 0 /100WBC; PLATELET COUNT* 272 thou/uL (150-400); RBC 4.05 mil/uL (4.50-6.00); RDW-CV 14.3 % (10.5-14.5)
[2020-02-03 06:02] LABS: ALBUMIN 2.9 g/dL (3.4-5.0); CALCIUM 8.6 mg/dL (8.5-10.1); CREATININE 0.9 mg/dL (0.6-1.3); MAGNESIUM 2.4 mg/dL (1.8-2.4); POTASSIUM 4.4 mmol/L (3.5-5.1); TOTAL BILIRUBIN 0.9 mg/dL (<0.1-1.0); TOTAL PROTEIN 5.9 g/dL (6.4-8.2)
[2020-02-03 07:43] LABS: ABSOLUTE LYMPHOCYTES 0.8 thou/uL (0.8-5.3); ABSOLUTE MONOCYTES 1.6 thou/uL (0.0-1.2); ABSOLUTE NEUTROPHILS 17.6 thou/uL (1.6-8.1); ANISOCYTOSIS 1+; PLATELET ESTIMATE ADEQUATE; POIKILOCYTOSIS 1+
[2020-02-03 10:38] VITALS: BP 135/77
[2020-02-03 12:00] VITALS: BP 123/67
[2020-02-03 16:00] VITALS: BP 132/66
--- NOTE | 2020-02-03 16:59 | NUR ---
PT A&Ox4. VITALS STABLE. ON 45L HIGH FLOW CANNULA. BIPAP AT NIGHT. CONTINUOUS PULSE OX. BEDREST DUE TO OX DESTATING. EATING 20% OF MEALS. SOFT STOOLS. IV PATENT, SL. CALL LIGHT WITHIN REACH. WILL CONTINUE TO MONITOR.
[2020-02-03 20:00] VITALS: BP 125/70
[2020-02-04] VITALS: BP 132/80
[2020-02-04 04:00] VITALS: BP 171/84
[2020-02-04 07:15] LABS: BE -1.1 mmol/L (-2 to +3); PCO2 32.1 mmHg (35.0-45.0); pH 7.452 (7.340-7.450)
[2020-02-04 07:26] LABS: PO2 51.4 mmHg (75.0-100.0)
[2020-02-04 08:00] VITALS: BP 132/69
[2020-02-04 10:21] LABS: BE -1.8 mmol/L (-2 to +3); PCO2 32.8 mmHg (35.0-45.0); PO2 74.5 mmHg (75.0-100.0); pH 7.435 (7.340-7.450)
[2020-02-04 13:30] VITALS: BP 97/60
[2020-02-04 16:00] VITALS: BP 122/71
--- NOTE | 2020-02-04 19:39 | NUR ---
FAMILY MEETING TODAY TO TALK ABOUT CODE STATUS. FAMILY WILL DECIDE TOMORROW AFTER TALKING WITH DR PELAEZ, AT THIS TIME THEY ARE LEANING TOWARD DNI.
[2020-02-04 20:00] VITALS: BP 116/47
[2020-02-05] VITALS (7 sets, daily range): BP systolic 99–128; BP diastolic 45–74
[2020-02-05 04:57] LABS: ABSOLUTE BASOPHILS 0.1 thou/uL (0.0-0.2); ABSOLUTE LYMPHOCYTES 0.9 thou/uL (0.8-5.3); ABSOLUTE MONOCYTES 0.9 thou/uL (0.0-1.2); ABSOLUTE NEUTROPHILS 18.2 thou/uL (1.6-8.1); BASOPHILS 0.6 %; HEMATOCRIT 39.3 % (42.0-52.0); HEMOGLOBIN 13.2 gm/dL (14.0-18.0); LYMPHOCYTES 4.5 %; MCH 30.7 pg (26.0-34.0); MCHC 33.6 g/dL (28.0-37.0); MCV 91.3 fL (80.0-100.0); MONOCYTES 4.6 %; MPV 7.6 fl. (7.2-11.1); NUCLEATED RBCS 0 /100WBC; PLATELET COUNT* 219 thou/uL (150-400); POLYS 90.3 %; RDW-CV 13.8 % (10.5-14.5); WBC 20.1 thou/uL (4.0-11.0)
[2020-02-05 05:28] LABS: CALCIUM 8.3 mg/dL (8.5-10.1); CREATININE 0.7 mg/dL (0.6-1.3); MAGNESIUM 2.3 mg/dL (1.8-2.4); POTASSIUM 4.5 mmol/L (3.5-5.1)
--- NOTE | 2020-02-05 07:57 | NUR ---
ASSUMED PT CARE AT APPROX 1930. PT IS AWAKE AND ORIENTED X4. PT IS TRACING SR WITH OCCASSIONAL PACs AND PVCs. PT DENIES PAIN. PT EASILY DESATURATES TO THE LOW 80's WITH MINIMAL EXCERSION (TALKING/DRINKING WATER) PT REMAINED ON THE HEATED HI-FLOW NASAL CANNULA W/ 50L OF O2. PT DID NOT WANT TO WEAR BIPAP @HS. PT IS CLOSELY MONITORED. CALL LIGHT WITHIN REACH. HOURLY ROUNDING DONE FOR PT SAFETY.
--- NOTE | 2020-02-05 10:07 | NUR ---
AT BS. PT ON 50L HHF NC AND SATS ARE IN UPPERS 80S. PT SOA WITH SLIGHTEST MOVEMENT. ENCOURAGED PT TO CONSERVE ENERGY. DISCUSSED TREATMENT OPTIONS WITH PT AND . PT STATES HE WOULD LIKE TO BE A FULL CODE-VENTILATOR AND CPR OK BUT IS OPEN TO PALLIATIVE CARE. WANTS TO DISCUSS MORE WITH DR PELAEZ AND CHILDREN BEFORE MAKING DECISION REGARDING PALLATIVE CARE.
--- NOTE | 2020-02-05 11:51 | NUR ---
CM INFORMED DURING PRIME ROUNDING OF PLAN OF CARE FOR THE PT INCLUDING PLAN FOR PT AND FAMILY TO DISCUSS HOSPICE VS COMFORT CARE VS INTUBATION WITH THE NEED FOR A HIGHER LEVEL OF CARE. CM WILL REMAIN AVAILABLE TO DISCUSS WITH FAMILY AND ASSIST WITH D/C PLANNING.
--- NOTE | 2020-02-05 19:00 | NUR ---
PT RESTING IN BED,REPOSITIONED TOLERATED. FAMILY AT BS. PT ON 50L HHF NC. SATS IN UPPERS 80S. DESATS QUICKLY WITH MOVEMENT. PT EDUCATED ON ENERGY CONSERVATON. FAMILY DISCUSSED PT STATUS WITH SARAI. PT STATES HE WOULD LIKE TO REMAIN FULL CODE AND WANTS AGGRESSIVE TREATMENT. POOR APPETITE BUT TOLERATED PO FLUIDS. NSR ON MONITOR
[2020-02-06] VITALS (74 sets, daily range): BP systolic 59–162; BP diastolic 35–96
[2020-02-06 04:20] LABS: HEMATOCRIT 43.3 % (42.0-52.0); HEMOGLOBIN 14.5 gm/dL (14.0-18.0); MCHC 33.5 g/dL (28.0-37.0); MCV 92.5 fL (80.0-100.0); MPV 7.7 fl. (7.2-11.1); RBC 4.68 mil/uL (4.50-6.00); RDW-CV 14.4 % (10.5-14.5); WBC 25.9 thou/uL (4.0-11.0)
[2020-02-06 04:23] LABS: CALCIUM 8.7 mg/dL (8.5-10.1); MAGNESIUM 2.6 mg/dL (1.8-2.4); POTASSIUM 4.7 mmol/L (3.5-5.1)
--- NOTE | 2020-02-06 07:40 | NUR ---
ASSUMED PT CARE AT APPROX 1930. PT IS AWAKE AND ORIENTED X4. PT IS TRACING SR WITH OCCASSIONAL PACs PVCs ON THE MONITOR. spO2 REMAINED IN THE 80's ON 5OL HEATED HIGH FLOW NASAL CANNULA. RT INFORMED, PT IS PUT ON THE BIPAP (AVAPS) WITH 100% FIO2. PT REMAINED TACHYPNEIC MOST OF THE NIGHT, BUT spO2 IMPROVED TO THE LOW 90's. DR MCADAMS UPDATED ON PT'S CONDITION. REMAINED AT THE BEDSIDE. PT IS CLOSELY MONITORED.
[2020-02-06 09:03] LABS: BE -2.1 mmol/L (-2 to +3); PCO2 32.2 mmHg (35.0-45.0); PO2 72.9 mmHg (75.0-100.0); pH 7.436 (7.340-7.450)
--- NOTE | 2020-02-06 09:44 | NUR ---
PT IN RESP DISTRESS-RR IN 40S. PT LETHARGIC. PT ON [address]L HHFNC. DR LE NOTIFIED.
--- NOTE | 2020-02-06 09:50 | NUR ---
PT RR REMAINS IN 40S AND SATS IN LOW 80S. PT PLACED ON BIPAP. DECISION MADE PER DR EL TO INTUBATE PT. DR BLANC AT BS. MEDS GIVEN ORDERED-ETOMINDATE 10 MG AND SUCC 100 MG. PT INTUBATED WITH 7.5 ET TUBE 24 CM AT LIP. PT TAKEN TO ICU VIA BED BEING BAGGED. REPORT TO RAFI MCKENZIE. NOTIFIED BY DR LE AND UPDATED IN WAITING ROOM
[2020-02-06 12:37] LABS: ALBUMIN 3.2 g/dL (3.4-5.0); DIRECT BILIRUBIN 0.2 mg/dL (<0.1-0.3); TOTAL BILIRUBIN 0.9 mg/dL (<0.1-1.0); TOTAL PROTEIN 6.8 g/dL (6.4-8.2)
[2020-02-06 12:38] LABS: BE -4.6 mmol/L (-2 to +3); PCO2 36.4 mmHg (35.0-45.0); PO2 67.7 mmHg (75.0-100.0); pH 7.361 (7.340-7.450)
--- NOTE | 2020-02-06 13:47 | NUR ---
RIGHT BASILIC VESSEL ACCESSED FOR 5 FIJIAN TRIIPLE LUMEN PICC. LINE PRE-TRIMMED TO 36CM AND ADVANCED TO THE ZERO AURORA WITH NO RESISTANCE MET. UPPER ARM CIRCUMFERENCE ABOVE INSERTION SITE= 10". SHERLOCK MAGNET AND 3CG CONFIRMATION OF TIP TERMINATION AT THE CAVOATRIAL JUNCTION APPRECIATED. GUIDEWIRE REMOVED, LINE FLUSHED AND INSERTION SITE DRESSED. REPORT GIVEN TO RAFI MCKENZIE.
--- NOTE | 2020-02-06 14:50 | NUR ---
CM INFORMED DURING PRIME ROUNDING OF PLAN OF CARE FOR THE PT. PT IN NEED OF VENT. POSSIBLE INTUBATION, TRECH, AND PEG. PT TRANSFERED TO ICU. AT LAST DISCUSSION WITH PT AND SPOUSE PLAN WAS TO CONTINUE AGRESSIVE CARE. THIS MAY NEED TO BE READDRESSED TO DETERMINE PLAN OF CARE. CM WILL REMAIN AVAILABLE TO ASSIST AND FOLLOW NEEDED.
--- NOTE | 2020-02-06 18:47 | NUR ---
PT WAS TRANSFERRED TO ICU INTUBATED ON SEDATION AND LEVOPHED TOLERATING WELL AT BEDSIDE UPDATED ASSESSMENT CHARTED
[2020-02-07] VITALS (90 sets, daily range): BP systolic 78–181; BP diastolic 37–82
--- NOTE | 2020-02-07 01:35 | NUR ---
PATIENT'S BP DROPPED TO 70'S SYSTOLIC WITH MAP IN 50'S. TEMPERATURE HAS BEEN RISING STEADILY THROUGHOUT THE SHIFT. SEPSIS SCREENING DONE AND PATIENT SCREENS POSITIVE FOR SEPSIS. MESSAGE SENT TO DR. LE, CULTURES DRAWN AND SENT. AWAITING PHYSICIAN RESPONSE
[2020-02-07 01:36] LABS: URINE BILIRUBIN NEGATIVE (Negative); URINE BLOOD 3+ (Negative); URINE CLARITY CLEAR; URINE COLOR YELLOW; URINE GLUCOSE-RANDOM 1+ (Negative); URINE KETONES NEGATIVE (Negative); URINE LEUKOCYTES-REFLEX NEGATIVE (Negative); URINE NITRITE-REFLEX NEGATIVE (Negative); URINE PROTEIN 1+ (Negative); URINE SPECIFIC GRAVITY >= 1.030 (1.005-1.030); URINE UROBILINOGEN 0.2 E.U./dl (0.2-1.0)
[2020-02-07 02:50] LABS: HEMATOCRIT 41.3 % (42.0-52.0); HEMOGLOBIN 13.6 gm/dL (14.0-18.0); MCH 30.7 pg (26.0-34.0); MPV 7.8 fl. (7.2-11.1); NUCLEATED RBCS 0 /100WBC; PLATELET COUNT* 223 thou/uL (150-400); RBC 4.44 mil/uL (4.50-6.00); RDW-CV 14.2 % (10.5-14.5); WBC 38.1 thou/uL (4.0-11.0)
[2020-02-07 02:53] LABS: APTT 21.9 Seconds (25.0-31.3); PROTIME 11.1 Seconds (9.20-11.50)
[2020-02-07 03:05] LABS: HYALINE CASTS 4-10 Moderate /LPF (None Seen); SQUAMOUS 4-10 Moderate /LPF (0-3)
[2020-02-07 03:06] LABS: URINE WBC-REFLEX 0-5 Rare /HPF (0-5); YEAST-REFLEX Present (None Seen)
[2020-02-07 03:07] LABS: BACTERIA-REFLEX 1-9 Few /HPF (None Seen)
[2020-02-07 03:08] LABS: CRYSTALS None Seen /LPF (None Seen)
[2020-02-07 03:09] LABS: CALCIUM 8.2 mg/dL (8.5-10.1); CREATININE 1.2 mg/dL (0.6-1.3); POTASSIUM 4.9 mmol/L (3.5-5.1)
[2020-02-07 03:13] LABS: ALBUMIN 2.9 g/dL (3.4-5.0); MAGNESIUM 2.5 mg/dL (1.8-2.4); PHOSPHORUS* 4.1 mg/dL (2.5-4.9); TOTAL BILIRUBIN 0.9 mg/dL (<0.1-1.0); TOTAL PROTEIN 6.3 g/dL (6.4-8.2)
[2020-02-07 04:10] LABS: ABSOLUTE LYMPHOCYTES 0.8 thou/uL (0.8-5.3); ABSOLUTE MONOCYTES 1.5 thou/uL (0.0-1.2); ABSOLUTE NEUTROPHILS 35.8 thou/uL (1.6-8.1)
[2020-02-07 04:11] LABS: PLATELET ESTIMATE ADEQUATE
[2020-02-07 10:53] LABS: BE -3.8 mmol/L (-2 to +3); PCO2 43.1 mmHg (35.0-45.0); PO2 74.8 mmHg (75.0-100.0); pH 7.327 (7.340-7.450)
--- NOTE | 2020-02-07 11:52 | NUR ---
Nutrition: noted start of Jevity 1.5 with goal rate of 40 ml/hr; this would provide 1440 kcal, 61 g protein and 730 ml water. Rec increase goal rate to 55 ml/hr to provide 1980 kcla, 84 g protein and 1003 ml water; meeting 100% est kcal range and 94% low-end est protein needs.
--- NOTE | 2020-02-07 16:00 | NUR ---
ICU rounds: Pt down from tele. CM spoke with , plan family meeting with tomorrow around 11am, son to be in room with Pt and will be on the phone. Updated nurse.
--- NOTE | 2020-02-07 16:19 | NUR ---
FULL UPDATE VERBALIZED TO RACHELLE THIS AM W/ IN ROOM. REQUESTING FAMILY MEETING W/ HOSPITALIST FOR POC. REQUESTED FOR THIS TO BE ARRANGED BY JELLY MGMNT. PHONE MEETING SCHEDULED FOR 02/08/20 AT 1100. SON TO BE PRESENT IN ROOM W/ ON PHONE. SEDATION INCREASED T/O DAY D/T DYSSYNCHRONY W/ VENT. PT CURRENTLY ON FENTANYL GTT AT 125 MCG/HR, VERSED GTT AT 10 MG/HR. FENTANYL IVP PRN UTILIZED. ATIVAN X1 DOSE IVP ADMIN. CONTINUE TO BE DYSSYNCHRONOUS W/ VENT ALTHOUGH SLIGHTLY IMPROVED. Sergei CÁRDENAS RN
--- NOTE | 2020-02-07 19:15 | NUR ---
PT LYING IN BED W/ EYES CLOSED. CONTINUE MAX RATE ON VERSED AND FENTANYL GTTS. CONTINUES TO HAVE DYSSYNCHRONY W/ VENT. DR PELAEZ MADE AWARE AND NO NEW ORDERS. DOES NOT FOLLOW COMMANDS W/ DECREASED SEDATION. DOES FROWN AND COUGH. SR ON MONITOR. CONT SHUBHAM GTT. A LINE TO RT RADIAL. NO EDEMA. +2/2 PULSES. ETT 7.5 26 CM AT LIP. CONT SAME VENT SETTINGS W/ FIO2 AT 80%. LS DIM. MIN SECRETIONS FROM INLINE SUCTION. ORAL CARE COMPLETED Q2HR. ADEQUATE URINE FROM BLAND W/ TEMP PROBE. TOLERATING MEDS W/ H20 FLUSHES. WILL START TF WHEN RCVE TF PUMP. HYPERACTIVE BS. NO BM. GENERALIZED BRUISING AND SCABS IN VARIOUS STAGES OF HEALING. COCCYX RED. TURN TOLERATED. SCDS ON. TMAX 99.5 VIA BLAND TEMP PROBE. FULL UPDATE VERBALIZED TO , RACHELLE AT BEDSIDE. FAMILY MEETING W/ DR LE IN AM 12/10. Sergei CÁRDENAS RN
[2020-02-08] VITALS (19 sets, daily range): BP systolic 82–164; BP diastolic 42–65
[2020-02-08 04:09] LABS: ABSOLUTE LYMPHOCYTES 0.6 thou/uL (0.8-5.3); ABSOLUTE MONOCYTES 3.4 thou/uL (0.0-1.2); ABSOLUTE NEUTROPHILS 44.7 thou/uL (1.6-8.1); HEMATOCRIT 38.8 % (42.0-52.0); HEMOGLOBIN 12.5 gm/dL (14.0-18.0); LYMPHOCYTES 1.3 %; MCH 30.8 pg (26.0-34.0); MCHC 32.2 g/dL (28.0-37.0); MCV 95.6 fL (80.0-100.0); MPV 7.6 fl. (7.2-11.1); NUCLEATED RBCS 0 /100WBC; PLATELET COUNT* 178 thou/uL (150-400); POLYS 91.7 %; RBC 4.05 mil/uL (4.50-6.00); RDW-CV 14.3 % (10.5-14.5)
[2020-02-08 04:17] LABS: WBC 48.7 thou/uL (4.0-11.0)
[2020-02-08 05:16] LABS: ALBUMIN 2.7 g/dL (3.4-5.0); CALCIUM 7.7 mg/dL (8.5-10.1); CREATININE 1.3 mg/dL (0.6-1.3); MAGNESIUM 2.7 mg/dL (1.8-2.4); POTASSIUM 5.8 mmol/L (3.5-5.1); TOTAL BILIRUBIN 0.5 mg/dL (<0.1-1.0); TOTAL PROTEIN 5.9 g/dL (6.4-8.2)
[2020-02-08 08:00] LABS: BE -13.7 mmol/L (-2 to +3); PO2 102.3 mmHg (75.0-100.0)
[2020-02-08 08:04] LABS: PCO2 70.5 mmHg (35.0-45.0); pH 7.024 (7.340-7.450)
--- NOTE | 2020-02-08 08:09 | NUR ---
ASSESSMENTS CHARTED. PATIENT DYSYNCHRONOUS WITH THE VENT INTERMITTENTLY DURING THE SHIFT. 02 SATURATION STAYING ABOVE 90%. BLOOD PRESSURE STEADILY DECREASING OVER THE SHIFT. NEOSYNEPHRINE INCREASED OVER THE SHIFT. LEVOPHED STARTED TO WEAN NEOSYNEPHRINE DOWN PER DR. PELAEZ'S PROGRESS NOTE. POTASSIUM THIS AM AT 5.8, ORDERS CARRIED OUT PER DR. PELAEZ. PRESSURE CONTROL INCREASED TO 18, PATIENT WAS NOT PULLING HIS VOLUMES ON 15 PC. TUBE FEEDING STARTED AT 0100, TOLERATING WELL AT THIS TIME. FAMILY MEETING PLANNED THIS AM
[2020-02-08 10:52] LABS: BE -6.2 mmol/L (-2 to +3); PO2 61.3 mmHg (75.0-100.0)
[2020-02-08 10:53] LABS: PCO2 65.4 mmHg (35.0-45.0); pH 7.168 (7.340-7.450)
[2020-02-08 11:57] LABS: ABSOLUTE BASOPHILS 0.1 thou/uL (0.0-0.2); ABSOLUTE LYMPHOCYTES 1.1 thou/uL (0.8-5.3); ABSOLUTE MONOCYTES 3.5 thou/uL (0.0-1.2); BASOPHILS 0.1 %; HEMATOCRIT 32.9 % (42.0-52.0); HEMOGLOBIN 10.9 gm/dL (14.0-18.0); LYMPHOCYTES 2.7 %; MCH 31.3 pg (26.0-34.0); MCHC 33.2 g/dL (28.0-37.0); MCV 94.4 fL (80.0-100.0); MONOCYTES 9.1 %; MPV 7.7 fl. (7.2-11.1); NUCLEATED RBCS 0 /100WBC; PLATELET COUNT* 126 thou/uL (150-400); POLYS 88.1 %; RBC 3.48 mil/uL (4.50-6.00); WBC 38.6 thou/uL (4.0-11.0)
[2020-02-08 12:12] LABS: CALCIUM 7.1 mg/dL (8.5-10.1); CREATININE 1.4 mg/dL (0.6-1.3); MAGNESIUM 2.6 mg/dL (1.8-2.4); POTASSIUM 5.4 mmol/L (3.5-5.1)
--- NOTE | 2020-02-08 14:13 | NUR ---
ICU rounds: Family meeting today. Trach/peg planned. Gerber. Art line. Pressors. Tube feeds tolerated. ID following. Rapid covid yesterday was negative.
[2020-02-08 16:59] LABS: BE -3.6 mmol/L (-2 to +3); PO2 105.8 mmHg (75.0-100.0)
[2020-02-08 17:10] LABS: PCO2 69.5 mmHg (35.0-45.0); pH 7.187 (7.340-7.450)
[2020-02-08 18:02] LABS: CALCIUM 7.2 mg/dL (8.5-10.1); CREATININE 1.2 mg/dL (0.6-1.3); MAGNESIUM 2.5 mg/dL (1.8-2.4); POTASSIUM 5.2 mmol/L (3.5-5.1)
[2020-02-08 19:40] LABS: BE -1.7 mmol/L (-2 to +3); PCO2 48.2 mmHg (35.0-45.0); PO2 60.4 mmHg (75.0-100.0); pH 7.326 (7.340-7.450)
--- NOTE | 2020-02-08 22:46 | NUR ---
ABG RESULTS IMPROVING POST PARALYSIS. SPOKE WITH DR. PELAEZ, PATIENT NOW ON NIMBEX. KEEP O2 SAT >90%
[2020-02-09] VITALS (67 sets, daily range): BP systolic 95–211; BP diastolic 40–112
[2020-02-09 05:27] LABS: HEMATOCRIT 27.1 % (42.0-52.0); HEMOGLOBIN 9.1 gm/dL (14.0-18.0); MCH 31.7 pg (26.0-34.0); MCHC 33.6 g/dL (28.0-37.0); MCV 94.2 fL (80.0-100.0); MPV 7.8 fl. (7.2-11.1); RBC 2.88 mil/uL (4.50-6.00); RDW-CV 14.1 % (10.5-14.5)
[2020-02-09 05:33] LABS: BE -0.7 mmol/L (-2 to +3); PO2 80.2 mmHg (75.0-100.0)
[2020-02-09 05:36] LABS: PCO2 59.5 mmHg (35.0-45.0); pH 7.272 (7.340-7.450)
[2020-02-09 05:37] LABS: CALCIUM 7.5 mg/dL (8.5-10.1); POTASSIUM 4.8 mmol/L (3.5-5.1)
[2020-02-09 05:57] LABS: WBC 16.3 thou/uL (4.0-11.0)
--- NOTE | 2020-02-09 07:14 | NUR ---
ASSESSMENTS CHARTED. PATIENT PERIODICALLY DROPPING O2 SATURATION ON INTIAL VENT SETTINGS THROUGHOUT THE SHIFT. PATIENT REQUIRED TO BE TITRATED TO 85% FIO2 ON VENT. ABG DRAWN DUE TO STATUS CHANGE. CRITICAL RESULTS CALLED TO DR. PELAEZ. FIO2 BROUGHT DOWN TO 80% AGAIN. LEVOPHED TITRATED DOWN. PATIENT STILL REQUIRING 1 MCG/MIN FOR BP SUPPORT. PATIENT STARTED ON NIMBEX PER DR. PELAEZ. OG WAS NOT PULLING BACK TO CHECK RESIDUALS. OG REPLACED, XRAY CONFIRMATION OF PLACEMENT. NO BM THIS SHIFT. OFFLOADING PRESSURE POINTS WITH PILLOWS. PATIENT NOT TOLERATING TURNS WITH WEDGES. VSS
--- NOTE | 2020-02-09 14:56 | NUR ---
ICU rounds: Plan to initiate comfort care tomorrow
[2020-02-09 16:27] LABS: BE 1.8 mmol/L (-2 to +3); PCO2 43.5 mmHg (35.0-45.0); pH 7.406 (7.340-7.450)
[2020-02-09 16:29] LABS: PO2 56.1 mmHg (75.0-100.0)
[2020-02-09 16:38] LABS: CALCIUM 7.5 mg/dL (8.5-10.1); CREATININE 0.7 mg/dL (0.6-1.3); POTASSIUM 4.9 mmol/L (3.5-5.1)
--- NOTE | 2020-02-09 19:29 | NUR ---
FAMILY HAS DECIDED TO TRANSITION TO COMFORT CARE 02/10/20. FAMILY WILL BE ARRIVING AROUND 0930. DR LE, DR PELAEZ, AND TRANSPORTATION ASSISTANT NOTIFIED. PT STILL ON NIMBEX GTT AT THIS TIME. NO NEW ORDERS WHEN PHYSICIAN TEAM NOTIFIED OF TIME FAMILY WILL BE ARRIVING TO TRANSITION. FULL UPDATE VERBALIZED TO , RACHELLE, AT BEDSIDE. ALL QUESTIONS ANSWERED AND VERBALIZED UNDERSTANDING AT TIME OF UPDATE. CONT CURRENT SEDATION AND ABX. LEVO RESTARTED AND NEW BAG HUNG. VENT CHANGES PER RT. NO FURTHER ASSESSMENT CHANGES. Sergei CÁRDENAS, RN
[2020-02-09 20:40] LABS: BE 0.9 mmol/L (-2 to +3); PO2 65.7 mmHg (75.0-100.0); pH 7.346 (7.340-7.450)
[2020-02-09 20:47] LABS: PCO2 50.7 mmHg (35.0-45.0)
[2020-02-10] VITALS (18 sets, daily range): BP systolic 102–127; BP diastolic 38–49
--- NOTE | 2020-02-10 04:43 | NUR ---
PT. NOT PROGRESSING TOWARDS GOALS. FAMILY PLANS ON PT. GOING COMFORT CARE TODAY AT AROUND 0930. NIMBEX GTT TURNED OFF PER DR. POWERS ORDER. LEVO GTT OFF AT THIS TIME. FENTANYL/VERSED GTT'S REMAIN INFUSING. RIGHT RADIAL ART LINE. WILL CONTINUE TO MONITOR.
[2020-02-10 05:31] LABS: ABSOLUTE LYMPHOCYTES 0.3 thou/uL (0.8-5.3); ABSOLUTE MONOCYTES 0.8 thou/uL (0.0-1.2); ABSOLUTE NEUTROPHILS 13.6 thou/uL (1.6-8.1); BASOPHILS 0.1 %; HEMATOCRIT 26.4 % (42.0-52.0); HEMOGLOBIN 8.8 gm/dL (14.0-18.0); LYMPHOCYTES 2.4 %; MCH 31.2 pg (26.0-34.0); MCHC 33.2 g/dL (28.0-37.0); MCV 94.1 fL (80.0-100.0); MONOCYTES 5.5 %; MPV 8.5 fl. (7.2-11.1); NUCLEATED RBCS 0 /100WBC; PLATELET COUNT* 65 thou/uL (150-400); RBC 2.81 mil/uL (4.50-6.00); RDW-CV 14.4 % (10.5-14.5); WBC 14.8 thou/uL (4.0-11.0)
[2020-02-10 06:05] LABS: ALBUMIN 1.7 g/dL (3.4-5.0); CALCIUM 6.3 mg/dL (8.5-10.1); CREATININE 0.6 mg/dL (0.6-1.3); MAGNESIUM 2.1 mg/dL (1.8-2.4); POTASSIUM 4.3 mmol/L (3.5-5.1); TOTAL BILIRUBIN 0.2 mg/dL (<0.1-1.0)
--- NOTE | 2020-02-10 11:52 | NUR ---
ASSUMED CARE AT 0700, PATIENT REMAINS INTUBATED AND SEDATED. PATIENT FAMILY HERE AT 0900 AND READY TO MKAE PATIENT COMFORT CARE. PATIENT IS AN [employer] SO MTN WAS NOTIFIED, GIVEN THE OKAY TO EXTUBATE AT 1110 PER MTN. PATIENT PLACED ON COMFORT CARE MEDICATIONS. PATIENT WAS EXTUBATED AT 1125. FAMILY AT BEDSIDE. TRAIN OF 4 COMPLETED PRIOR TO MAKING PATIENT COMFORT CARE AND HE DID HAVE A TRAIN OF 4 OF 8. NO OTHER CONCERNS AT THIS TIME. WILL CONTINUE TO MONITOR AND CARE PLAN OF CARE.
== END 2020-02-10 13:00 | DRG 207 ==
LOC: M.ERS 09:34 → M.2W 11:26 → M.TBA-ER 11:26 → M.ORTHSURG 11:26 → M.2W 01-26 09:17 → M.ICU 02-06 10:07
PROVIDERS: Emergency Medicine Emergency Medical Services; Internal Medicine; Internal Medicine Critical Care Medicine; Nurse Practitioner; Pediatrics; ADMIT Internal Medicine; ATTEND Internal Medicine
PROC: 5A09357 Assistance with Respiratory Ventilation, Less than 24 Consecutive Hours, Continuous Positive Airway Pressure (ICD-10-PCS; principal; 2020-01-24)
PROC: 5A0935A Assistance with Respiratory Ventilation, Less than 24 Consecutive Hours, High Flow/Velocity Cannula (ICD-10-PCS; 2020-01-25)
PROC: 5A09357 Assistance with Respiratory Ventilation, Less than 24 Consecutive Hours, Continuous Positive Airway Pressure (ICD-10-PCS; 2020-01-26)
PROC: 5A09357 Assistance with Respiratory Ventilation, Less than 24 Consecutive Hours, Continuous Positive Airway Pressure (ICD-10-PCS; 2020-01-27)
PROC: 5A0935A Assistance with Respiratory Ventilation, Less than 24 Consecutive Hours, High Flow/Velocity Cannula (ICD-10-PCS; 2020-01-27)
PROC: 5A09357 Assistance with Respiratory Ventilation, Less than 24 Consecutive Hours, Continuous Positive Airway Pressure (ICD-10-PCS; 2020-01-28)
PROC: 5A0935A Assistance with Respiratory Ventilation, Less than 24 Consecutive Hours, High Flow/Velocity Cannula (ICD-10-PCS; 2020-01-28)
PROC: 5A0935A Assistance with Respiratory Ventilation, Less than 24 Consecutive Hours, High Flow/Velocity Cannula (ICD-10-PCS; 2020-01-29)
PROC: 5A09357 Assistance with Respiratory Ventilation, Less than 24 Consecutive Hours, Continuous Positive Airway Pressure (ICD-10-PCS; 2020-01-29)
PROC: 5A0935A Assistance with Respiratory Ventilation, Less than 24 Consecutive Hours, High Flow/Velocity Cannula (ICD-10-PCS; 2020-01-30)
PROC: 5A09357 Assistance with Respiratory Ventilation, Less than 24 Consecutive Hours, Continuous Positive Airway Pressure (ICD-10-PCS; 2020-01-30)
PROC: 5A09357 Assistance with Respiratory Ventilation, Less than 24 Consecutive Hours, Continuous Positive Airway Pressure (ICD-10-PCS; 2020-01-31)
PROC: 5A0935A Assistance with Respiratory Ventilation, Less than 24 Consecutive Hours, High Flow/Velocity Cannula (ICD-10-PCS; 2020-01-31)
PROC: 5A0935A Assistance with Respiratory Ventilation, Less than 24 Consecutive Hours, High Flow/Velocity Cannula (ICD-10-PCS; 2020-02-01)
PROC: 5A09357 Assistance with Respiratory Ventilation, Less than 24 Consecutive Hours, Continuous Positive Airway Pressure (ICD-10-PCS; 2020-02-01)
PROC: 5A0935A Assistance with Respiratory Ventilation, Less than 24 Consecutive Hours, High Flow/Velocity Cannula (ICD-10-PCS; 2020-02-02)
PROC: 5A09357 Assistance with Respiratory Ventilation, Less than 24 Consecutive Hours, Continuous Positive Airway Pressure (ICD-10-PCS; 2020-02-02)
PROC: 5A0935A Assistance with Respiratory Ventilation, Less than 24 Consecutive Hours, High Flow/Velocity Cannula (ICD-10-PCS; 2020-02-03)
PROC: 5A09357 Assistance with Respiratory Ventilation, Less than 24 Consecutive Hours, Continuous Positive Airway Pressure (ICD-10-PCS; 2020-02-03)
PROC: 5A0935A Assistance with Respiratory Ventilation, Less than 24 Consecutive Hours, High Flow/Velocity Cannula (ICD-10-PCS; 2020-02-04)
PROC: 5A09357 Assistance with Respiratory Ventilation, Less than 24 Consecutive Hours, Continuous Positive Airway Pressure (ICD-10-PCS; 2020-02-04)
PROC: 5A0935A Assistance with Respiratory Ventilation, Less than 24 Consecutive Hours, High Flow/Velocity Cannula (ICD-10-PCS; 2020-02-05)
PROC: 5A09357 Assistance with Respiratory Ventilation, Less than 24 Consecutive Hours, Continuous Positive Airway Pressure (ICD-10-PCS; 2020-02-05)
PROC: 5A0935A Assistance with Respiratory Ventilation, Less than 24 Consecutive Hours, High Flow/Velocity Cannula (ICD-10-PCS; 2020-02-06)
PROC: 4A133B1 Monitoring of Arterial Pressure, Peripheral, Percutaneous Approach (ICD-10-PCS; 2020-02-06)
PROC: B548ZZA Ultrasonography of Superior Vena Cava, Guidance (ICD-10-PCS; 2020-02-06)
PROC: 02HV33Z Insertion of Infusion Device into Superior Vena Cava, Percutaneous Approach (ICD-10-PCS; 2020-02-06)
PROC: 0BH18EZ Insertion of Endotracheal Airway into Trachea, Via Natural or Artificial Opening Endoscopic (ICD-10-PCS; 2020-02-06)
PROC: 4A133J1 Monitoring of Arterial Pulse, Peripheral, Percutaneous Approach (ICD-10-PCS; 2020-02-06)
PROC: 03HY32Z Insertion of Monitoring Device into Upper Artery, Percutaneous Approach (ICD-10-PCS; 2020-02-06)
PROC: 5A09357 Assistance with Respiratory Ventilation, Less than 24 Consecutive Hours, Continuous Positive Airway Pressure (ICD-10-PCS; 2020-02-06)
PROC: 5A1955Z Respiratory Ventilation, Greater than 96 Consecutive Hours (ICD-10-PCS; 2020-02-06)
PROC: 0BH17EZ Insertion of Endotracheal Airway into Trachea, Via Natural or Artificial Opening (ICD-10-PCS; 2020-02-06)
DX: J80 Acute respiratory distress syndrome (principal); J15.6 Pneumonia due to other Gram-negative bacteria; E43 Unspecified severe protein-calorie malnutrition; K56.7 Ileus, unspecified; J44.1 Chronic obstructive pulmonary disease with (acute) exacerbation; J44.0 Chronic obstructive pulmonary disease with (acute) lower respiratory infection; R04.2 Hemoptysis; Z16.39 Resistance to other specified antimicrobial drug; R57.9 Shock, unspecified; E87.2 Acidosis; I25.10 Atherosclerotic heart disease of native coronary artery without angina pectoris; K27.9 Peptic ulcer, site unspecified, unspecified as acute or chronic, without hemorrhage or perforation; R19.7 Diarrhea, unspecified; I27.20 Pulmonary hypertension, unspecified; N40.0 Benign prostatic hyperplasia without lower urinary tract symptoms; J84.10 Pulmonary fibrosis, unspecified; Z68.25 Body mass index [BMI] 25.0-25.9, adult; Z90.49 Acquired absence of other specified parts of digestive tract; I25.2 Old myocardial infarction; Z98.49 Cataract extraction status, unspecified eye; Z79.82 Long term (current) use of aspirin; Z79.899 Other long term (current) drug therapy; Z87.891 Personal history of nicotine dependence; Z20.828 Contact with and (suspected) exposure to other viral communicable diseases